=== PATIENT | male | born 1960 | race Caucasian/White ===

== ENCOUNTER 2017-04-09 10:53 | Inpatient (IN) ==
[2017-04-09] MEDS ORDERED: Naloxone 0.4 MG/ML INJ IVP PRN (15:18)
[2017-04-09] MEDS ORDERED: Ondansetron 4 MG/2 ML VIAL IVP PRN (15:18)
[2017-04-09] MEDS ORDERED: *HR* HYDROmorphone (PF) 1 MG/ML SYRINGE IVP PRN (15:24)
[2017-04-09] MEDS ORDERED: Ketorolac 15 MG/ML VIAL IVP PRN (15:25)
--- NOTE | 2017-04-09 16:01 | General Surg History&Physical ---
<Libertad Otoole - Last Filed: 04/09/17 16:02> Date of Encounter: 04/09/17 Time of Encounter: 16:00 Assessment and Plan (1) Gastric outlet obstruction Current Visit: Yes Status: Acute The assessment and plan as outlined above was discussed with the patient and/or family members who expressed understanding and agreement. All questions were answered. May have clear liquids today Nothing by mouth after midnight IV fluids- 75 mL's per hour PICC line insertion TPN therapy to start 04/10/17 Supportive care/pain control Pre-operative antibiotic- Mefoxin PPI therapy Await pathology results from biopsies H Pylori pending Repeat am labs Risks, benefits, alternatives, expected outcomes have been reviewed with the patient regarding gastrojejunostomy and he is in agreement to proceed in the next 24 hours to the operating room with Dr. Alvarez (2) Tobacco abuse Current Visit: Yes Status: Acute The assessment and plan as outlined above was discussed with the patient and/or family members who expressed understanding and agreement. All questions were answered. Smoking cessation education Incentive spirometer every 1 hour while awake DuoNebs every 6 hours routine (3) DVT prophylaxis Current Visit: Yes Status: Acute The assessment and plan as outlined above was discussed with the patient and/or family members who expressed understanding and agreement. All questions were answered. EPCDs to bilateral lower extremities for DVT prophylaxis Ambulate hallways TID with assistance History of Present Illness Chief complaint: Gastric outlet obstruction HPI: Mr. Ferrara is a 56 year old male who has been seen and evaluated by Dr. Alvarez as an outpatient for unintentional weight loss and early satiety. He had an EGD complete today with Dr. Alvarez as an outpatient which revealed erythema of the gastric antrum, irregular Z line, and severe duodenal stenosis. He was sent for an upper GI evaluation which further demonstrated severe duodenal stenosis causing gastric outlet obstruction. The patient reports having early satiety and unintentional weight loss for at least the last 6 months. He has lost 25+ pounds. He does have acid reflux and states that his symptoms have become more intense over the last few months. He reports dark red blood per rectum at times. Denies any fevers or chills. Denies any difficulty with urination. Denies any shortness of breath or chest pains. He has been admitted to the hospital for further workup and treatment. Past Med Surg Social Fam HX - Past Medical History Source: patient, old records reviewed Medical history: GERD, hyperlipidemia Psychiatric history: no psych history - Past Surgical History Surgical History: cholecystectomy, other (EGD/Colonoscopy) - Social History Smoking Status: Current every day smoker Packs per day: 1 Smokeless Tobacco Status: No Alcohol use: none Drug use: IV Drug Use, prescription drug abuse Current living situation: Home - Independent Activity Level: Independent ambulation - Family History Mother Living Status: Age at : 60 Cause of : colon cancer Hx Family Cancer: Yes (Colon) Hx Family Endocrine Disorder: Yes (DM) Grandmother Hx Family Cancer: Yes (colon (MGM)) Medications and Allergies Atorvastatin [Lipitor] 40 mg PO HS 04/10/17 [History] BuPROPion SR (12 HR) [Wellbutrin SR] 150 mg PO BID 04/10/17 [History] Lactose-Reduced Food [Ensure Liquid] 1 bottle PO TID 04/10/17 [History] Pantoprazole Sodium [Protonix] 40 mg PO DAILY 04/10/17 [History] Allergies No Known Allergies Allergy (Verified 08/23/16 18:26) Review of Systems All systems PM: reviewed and no additional remarkable complaints except as stated (in the HPI) All systems PM: A 10-system review of systems was performed and is negative for pertinent findings except as documented above in the HPI. General Surgery Exam Initial Vital Signs Temp Pulse Resp BP Pulse Ox 98.4 F 82 16 133/86 96 04/09/17 13:47 04/09/17 13:47 04/09/17 13:47 04/09/17 13:47 04/09/17 13:47 - General physical appearance well developed, well nourished, no distress - Eyes normal ocular movement - ENT normal mucosa, atraumatic, normocephalic - Neck trachea midline - Respiratory normal respiratory effort, clear to auscultation - Cardiovascular Cardiovascular exam: Present: RRR - Abdomen Abdomen general surgery: Present: bowel sounds present, soft, tender (mildly) - Integumentary Integumentary general surgery: Present: warm and dry - Neurologic Present: CN 2-12 grossly intact - Musculoskeletal Present: normal gait, normal posture - Psychiatric Psychiatric general surgery: Present: appropriate, oriented to person, oriented to place, oriented to time, speech is normal, memory intact Results - Labs All other labs normal. - Attending Attestation I examined this patient and my medical decision-making was reviewed with the TOOL AND DIE MAKER/PA/Advanced Practice Nurse/Resident Physician. I agree with the documented findings, disposition and treatment plan as described except to the extent set forth below. <Whit Alvarez - Last Filed: 04/10/17 21:43> Date of Encounter: 04/09/17 Assessment and Plan (1) History of drug abuse Current Visit: Yes Status: Chronic The assessment and plan as outlined above was discussed with the patient and/or family members who expressed understanding and agreement. All questions were answered. patient on methadone for this (2) Gastric outlet obstruction Current Visit: Yes Status: Acute The assessment and plan as outlined above was discussed with the patient and/or family members who expressed understanding and agreement. All questions were answered. (3) DVT prophylaxis Current Visit: Yes Status: Acute The assessment and plan as outlined above was discussed with the patient and/or family members who expressed understanding and agreement. All questions were answered. (4) Tobacco abuse Current Visit: Yes Status: Acute The assessment and plan as outlined above was discussed with the patient and/or family members who expressed understanding and agreement. All questions were answered. (5) Depression Current Visit: Yes Status: Acute The assessment and plan as outlined above was discussed with the patient and/or family members who expressed understanding and agreement. All questions were answered. hold home wellbutrin currently Qualifiers: Depression Type: unspecified Qualified Code(s): F32.9 - Major depressive disorder, single episode, unspecified History of Present Illness HPI: Mr. Ferrara is a 56 year old male who had previously had a CT scan of the abdomen done showing dilated small bowel and proximal duodenum with decompression after an area of narrowing. He has severe abdominal pain, epigastric area after trying to eat and will have emesis which often relieves his pain. Review of Systems All systems PM: A 10-system review of systems was performed and is negative for pertinent findings except as documented above in the HPI. General Surgery Exam Initial Vital Signs Temp Pulse Resp BP Pulse Ox 98.4 F 82 16 133/86 96 04/09/17 13:47 04/09/17 13:47 04/09/17 13:47 04/09/17 13:47 04/09/17 13:47 - General physical appearance well developed, well nourished, no distress, no pain - Eyes PERRL, normal ocular movement - ENT normal mucosa, normocephalic - Neck trachea midline - Respiratory normal expansion, clear to auscultation - Cardiovascular Cardiovascular exam: Present: RRR - Abdomen Abdomen general surgery: Present: bowel sounds present, soft, non tender - Integumentary Integumentary general surgery: Present: warm and dry, no abnormal pigmentation - Neurologic Present: CN 2-12 grossly intact - Musculoskeletal Present: normal gait, normal posture - Psychiatric Psychiatric general surgery: Present: A&Ox3, speech is normal Results - Labs 04/09/17 15:40 04/10/17 09:21 Abnormal lab results WBC 12.0 K/mcL (4.3-11.1) H 04/09/17 15:40 PT 12.5 Seconds (9.4-12.1) H 04/09/17 15:40 BUN 6 mg/dL (8-26) L 04/10/17 09:21 Phosphorus 1.8 mg/dL (2.3-4.7) L 04/10/17 09:21 Magnesium 0.9 mg/dL (1.6-2.6) L 04/10/17 09:21 Albumin 3.3 g/dL (3.5-5.0) L 04/09/17 15:40 Globulin 3.9 g/dL (2.4-3.5) H 04/09/17 15:40 Albumin/Globulin Ratio 0.8 (1.1-2.2) L 04/09/17 15:40 Diabetes panel 04/10/17 Range/Units 09:21 Sodium 141 (136-145) mEq/L Potassium 3.5 (3.5-4.5) mEq/L Chloride 108 (98-109) mEq/L Carbon Dioxide 26 (19-29) mEq/L BUN 6 L (8-26) mg/dL Creatinine 0.83 (0.72-1.25) mg/dL Glucose 96 (70-99) mg/dL Calcium 8.8 (8.6-10.8) mg/dL Triglycerides 141 (< 150) mg/dL Calcium panel 04/10/17 Range/Units 09:21 Calcium 8.8 (8.6-10.8) mg/dL Phosphorus 1.8 L (2.3-4.7) mg/dL Pituitary panel 04/10/17 Range/Units 09:21 Sodium 141 (136-145) mEq/L Potassium 3.5 (3.5-4.5) mEq/L Chloride 108 (98-109) mEq/L Carbon Dioxide 26 (19-29) mEq/L BUN 6 L (8-26) mg/dL Creatinine 0.83 (0.72-1.25) mg/dL Glucose 96 (70-99) mg/dL Calcium 8.8 (8.6-10.8) mg/dL Adrenal panel 04/10/17 Range/Units 09:21 Sodium 141 (136-145) mEq/L Potassium 3.5 (3.5-4.5) mEq/L Chloride 108 (98-109) mEq/L Carbon Dioxide 26 (19-29) mEq/L BUN 6 L (8-26) mg/dL Creatinine 0.83 (0.72-1.25) mg/dL Glucose 96 (70-99) mg/dL Calcium 8.8 (8.6-10.8) mg/dL All other labs normal. - Attending Attestation I examined this patient and my medical decision-making was reviewed with the TOOL AND DIE MAKER/PA/Advanced Practice Nurse/Resident Physician. I agree with the documented findings, disposition and treatment plan as described except to the extent set forth below.
[2017-04-09 16:05] LABS: INR 1.2; Prothrombin Time 12.5 Seconds (9.4-12.1)
[2017-04-09 16:09] LABS: Basophils # 0.1 K/mcL (0.0-0.2); Basophils % 0.4 %; Eosinophils # 0.1 K/mcL (0.0-0.6); Eosinophils % 1.1 %; Hematocrit 43.9 % (37.5-50.1); Hemoglobin 14.4 g/dL (12.9-16.9); Immature Granulocytes % 0.3 % (0-4); Lymphocytes # 2.3 K/mcL (0.6-4.6); Lymphocytes % 19.3 %; Mean Corpuscular HGB Conc 32.8 g/dL (31.6-35.5); Mean Corpuscular Hemoglobin 28.6 pg (28.0-33.3); Mean Corpuscular Volume 87.3 fL (83.0-100.0); Mean Platelet Volume 9.6 fL (9.4-12.4); Monocytes # 0.8 K/mcL (0.0-1.3); Monocytes % 6.3 %; Neutrophils # 8.7 K/mcL (1.6-8.9); Platelet Count 315 K/mcL (140-400); Red Blood Count 5.03 M/mcL (4.19-5.50); Segmented Neutrophils % 72.6 %
[2017-04-09 16:13] LABS: Alanine Aminotransferase 10 Units/L (0-55); Albumin 3.3 g/dL (3.5-5.0); Albumin/Globulin Ratio 0.8 (1.1-2.2); Alkaline Phosphatase 97 Units/L (38-126); Aspartate Amino Transferase 16 Units/L (5-34); BUN/Creatinine Ratio 9 (6-26); Bilirubin,Total 0.5 mg/dL (0.2-1.2); Blood Urea Nitrogen 8 mg/dL (8-26); Calcium 9.4 mg/dL (8.6-10.8); Carbon Dioxide 30 mEq/L (19-29); Chloride 107 mEq/L (98-109); Globulin 3.9 g/dL (2.4-3.5); Glucose 81 mg/dL (70-99); Osmolality,Calculated 295 (280-300); Potassium 3.9 mEq/L (3.5-4.5); Sodium 144 mEq/L (136-145); Total Protein 7.2 g/dL (6.0-8.3); eGFR For African Americans > 60 (> 60); eGFR For Non-African Americans > 60 (> 60)
[2017-04-09] MEDS: 0.9 % Sodium Chloride 1,000 ML IVC SCH (16:44)
[2017-04-09] MEDS ORDERED: *HR* Heparin 5,000 UNIT/ML VIAL SQ SCH (18:00)
--- NOTE | 2017-04-09 19:01 | Anesthesia Evaluation PreOp ---
Date of Encounter: 04/09/17 Time of Encounter: 18:59 - Past History Planned Operation: jejunostomy tube placement Cardiac History: Hyperlipidemia Pulmonary History: Smoker ENTRY LEVEL CIVIL ENGINEER History: Denies Any Significant HX Other Medical History: GERD Anesthesia History: No Prior Anesthetic Complications, Past Anesthesia (egd, cholecyst) Alcohol Use: none Drug use: IV Drug Use, prescription drug abuse Medications and Allergies Erythromycin OPTH Oint 1 appl LEFT EYE ONCE #1 tube 08/23/16 [Rx] Allergies No Known Allergies Allergy (Verified 08/23/16 18:26) - Meds/Allergy Pre-op Review Medications Reviewed: Yes Allergies Reviewed: Yes Beta Blockers on Current Med List: No Anesthesia Results - Labs 04/09/17 15:40 04/09/17 15:40 Anesthesia Exam Vital Signs/O2 Sat/Glucose, Most Current Temp Pulse Resp BP Pulse Ox 04/09/17 15:39 98.3 F 67 16 147/72 96 Height: 1.7 Weight: 62 NPO (# of Hours): >8 - HEENT Pupil (Motor): Pupils equal, EOMI Mallampati: II Teeth: Missing Denture Type: Upper: Complete Oral Opening: Greater than 3 - ENTRY LEVEL CIVIL ENGINEER LOC: Oriented ENTRY LEVEL CIVIL ENGINEER Motor: Normal RUE, Normal LUE, Normal RLE, Normal LLE, Normal Face ENTRY LEVEL CIVIL ENGINEER Sensory: Normal: RUE, LUE, RLE, LLE, Face - Cardiac Rhythm: Regular Murmur: None - Pulmonary Breath Sounds: bilateral Clear Respiratory Effort: Symmetrical Anesthesia Assess/Plan ASA Score: 2 Modified Julian Scale for Level of Consciousness: Cooperative, oriented, and tranquil Anesthetic Plan: General Monitoring Plan: Standard Monitors Recovery Plan: PACU
[2017-04-09] MEDS: Pantoprazole 40 MG VIAL IVP SCH (20:08)
[2017-04-09] MEDS: Ipratropium/Albuterol Neb 3 ML IH SCH (22:01)
[2017-04-10] MEDS: Ipratropium/Albuterol Neb 3 ML IH SCH ×4 (03:49→22:35)
[2017-04-10] MEDS: 0.9 % Sodium Chloride 1,000 ML IVC SCH ×2 (04:58→23:49)
[2017-04-10] MEDS: Pantoprazole 40 MG VIAL IVP SCH (08:41)
[2017-04-10] MEDS ORDERED: Pantoprazole 40 MG VIAL IVP SCH (09:00)
[2017-04-10 10:04] LABS: BUN/Creatinine Ratio 7 (6-26); Blood Urea Nitrogen 6 mg/dL (8-26); Calcium 8.8 mg/dL (8.6-10.8); Carbon Dioxide 26 mEq/L (19-29); Chloride 108 mEq/L (98-109); Glucose 96 mg/dL (70-99); Magnesium 0.9 mg/dL (1.6-2.6); Osmolality,Calculated 289 (280-300); Phosphorous 1.8 mg/dL (2.3-4.7); Potassium 3.5 mEq/L (3.5-4.5); Sodium 141 mEq/L (136-145); Triglycerides 141 mg/dL (< 150); eGFR For African Americans > 60 (> 60); eGFR For Non-African Americans > 60 (> 60)
[2017-04-10] MEDS ORDERED: Lidocaine -MPF 1% 5 ML AMPUL INFILT ONE (10:28)
[2017-04-10] MEDS ORDERED: Magnesium Sulfate 2 GM in D5% in Water 100 ML IVPB ONE (11:52)
[2017-04-10] MEDS ORDERED: Potassium Phosphate 44 MEQ in 0.9 % Sodium Chloride 250 ML IVPB ONE (11:52)
[2017-04-10] MEDS ORDERED: D10% in Water 500 ML IVC PRN (11:52)
[2017-04-10] MEDS ORDERED: cefOXitin 2,000 MG in D5% in Water (Mini-Bag+) 100 ML IVPB ONE (16:00)
[2017-04-10] MEDS ORDERED: *HR* Succinylcholine 200 MG/10 ML VIAL IVP ONE (16:59)
[2017-04-10] MEDS ORDERED: Lidocaine -MPF 4% 5 ML AMPUL ONE (16:59)
[2017-04-10] MEDS ORDERED: Lidocaine -MPF 2% 2 ML VIAL ONE (16:59)
[2017-04-10] MEDS ORDERED: Clinimix E 5%-15% SOLUTION 2,000 ML with MVI, adult with vitamin K 10 ML IVC SCH (17:00)
[2017-04-10] MEDS ORDERED: *HR* Midazolam HCl 2 MG/2 ML VIAL ONE (17:01)
[2017-04-10] MEDS ORDERED: *HR* FentaNYL (PF) 100 MCG/2 ML VIAL ONE ×2 (17:01→18:54)
[2017-04-10] MEDS ORDERED: Ketamine *HR* 500 MG/10 ML MDV ONE (17:02)
[2017-04-10] MEDS ORDERED: *HR* Propofol 200 MG/20 ML VIAL IVP ONE (17:03)
[2017-04-10] MEDS ORDERED: *HR* Labetalol 20 MG/4 ML SYRINGE IVP PRN (17:40)
[2017-04-10] MEDS ORDERED: *HR* Midazolam HCl 2 MG/2 ML VIAL IVP PRN (17:40)
[2017-04-10] MEDS ORDERED: Ondansetron 4 MG/2 ML VIAL IVP ONE (17:40)
[2017-04-10] MEDS ORDERED: Acetaminophen IV 1,000 MG/100 ML INFUS..BTL IVPB ONE (17:40)
[2017-04-10] MEDS ORDERED: CefOXitin 2,000 MG VIAL IVPB ONE (17:44)
[2017-04-10] MEDS ORDERED: *HR* Rocuronium Bromide 50 MG/5 ML VIAL ONE (19:08)
[2017-04-10] MEDS ORDERED: *HR* HYDROmorphone 2 MG/ML SYRINGE ONE (19:23)
[2017-04-10] MEDS ORDERED: Neostigmine Methylsulfate 3 MG/3 ML SYRINGE ONE (19:50)
--- NOTE | 2017-04-10 20:11 | Operative Note ---
Date of procedure: 04/10/17 Pre-op diagnosis: Gastric outlet obstruction, duodenal stricture Post-op diagnosis: same Procedure: Retrocolic retrogastric gastrojejunostomy with Henderson enteroenterostomy Complications: None immediate Anesthesia: KURT Surgeon: Whit Alvarez Production Checker: Jacqueline Hunter Estimated blood loss (cc): 30 Urine output (cc): 1,200 Specimen: none Condition: stable Disposition: PACU Procedure in Detail: Patient was brought to the operating suite and placed supine on the operating table. Sign in was performed and everyone was in agreement. Anesthesia was induced and patient was endotracheally intubated by anesthesia without incident. An NG tube was placed by anesthesia. A Cisneros catheter was placed by the circulating nurse. The abdomen was prepped and draped in the usual sterile fashion. Timeout was performed again everyone was in agreement. Midline incision above the umbilicus was made through the skin and the subcutaneous tissue with a 15 blade. We dissected through the subcutaneous tissue to the midline linea alba fascia with the Bovie. The midline was entered with the Bovie. Kocur's were placed on either side of the fascia for retraction and the incision was elongated proximally and distally with the Bovie. NG tube was palpated in the middle stomach. The colon was lifted cephalad and the middle colic vessels identified. An opening in the transverse mesocolon to the left of the middle colic vessels was made with the Bovie. This exposed the posterior aspect of the stomach. The ligament of Treitz was identified and looped the small bowel brought up through the opening in the transverse colon mesentery. An opening in the stomach and the jejunum(anti-mesenteric) Was made with the Bovie and a linear PARISH 75 stapler using a blue load was used to make the common opening between the gastrojejunostomy, ensuring the distal jejunum was on the distal stomach. 4-0 Vicryl running stitch was used to close the common gastroenterotomy opening ensuring full-thickness bites, then Lembert stitches using 3-0 silk were then placed. A Henderson jejunal enteroenterostomy was constructed first with a linear PARISH-75 stapler blue load. The common channel was then closed with a 4-0 Vicryl running stitch, ensuring full- thickness bites. This was done Lemberted with 3-0 silk interrupted stitches. The patient's small bowel was very small. Succus was manipulated across the enteroenterostomy ensuring flow. The abdomen was irrigated with sterile saline. A 7 mm KENNY drain was placed through the left abdominal wall first incising the skin with a Bovie then pulling the drain through the skin with a tonsil. The drain was secured to the skin with a 2-0 silk stitch. The drain was placed below the gastrojejunostomy anastomosis. The opening in the mesentery of the transverse colon was closed with a 3-0 Vicryl running stitch. The midline fascia was closed with 2 separate #1 non-looped PDS running stitches meeting in the middle. The subcutaneous tissue was copiously irrigated with sterile saline. 3-0 Vicryl interrupted stitches were used to approximate the subcutaneous tissue. The skin was closed with alhaji. Drain sponge, 4 x 4 gauze and Medipore tape were applied as a dressing. Patient tolerated the procedure well. He was awoken by anesthesia and the operating suite and extubated without incident. All lap and instrument counts are correct at the end of the case. The NG tube and Cisneros catheter remain with the patient.
[2017-04-10] MEDS: *HR* HYDROmorphone (PF) 1 MG/ML SYRINGE IVP PRN ×4 (20:20→20:45)
[2017-04-10] MEDS: *HR* Promethazine 25 MG/ML VIAL IVP PRN ×2 (20:30→20:40)
[2017-04-10] MEDS ORDERED: Ketorolac 30 MG/ML VIAL IVP ONE (21:02)
--- NOTE | 2017-04-10 21:35 | Operative Note ---
Date of procedure: 04/10/17 Pre-op diagnosis: gallstone pancreatitis Post-op diagnosis: same Procedure: Laparoscopic cholecystectomy Complications: none immediate Anesthesia: GETA, local Local Anesthetics: 0.5% Sensorcaine HCL SubQ (cc) (30) Surgeon: Whit Alvarez Construction Skills Teacher: Jacqueline Hunter Estimated blood loss (cc): 10 Specimen: gallbladder and contents Condition: stable Disposition: PACU Procedure in Detail: The patient was brought into the operating suite and placed supine on the operating table. Sign-in was performed and everyone was in agreement. Anesthesia was induced and patient was endotracheally intubated by anesthesia without incident and they also placed an OG tube. The abdomen was prepped and draped in the usual sterile fashion. A timeout was performed again everyone was in agreement. A supraumbilical incision was made through the skin into the subcutaneous tissue with an 11 blade. Towel clamps were placed on either side of the umbilicus for retraction. S retractors were used to dissect down to the anterior abdominal wall linea alba fascia. A Veress needle was placed through this incision and a water drop test confirmed placement and the abdomen was insufflated. The abdomen was entered with a 5 mm 0 degree laparoscope on a 5 mm X-deb trocar. The area and entry was visualized was no bleeding and no apparent bowel injury. A 5 mm subxiphoid port was placed under direct visualization after first incising the skin with an 11 blade. A right upper quadrant subcostal position midclavicular line 5 mm port was placed under direct visualization after first incising skin with 11 blade. The laparoscope was placed in this and we exchanged the supraumbilical port for a 12 mm port under direct visualization. The last 5 mm port was placed in the right upper quadrant subcostal position anterior axillary line after first incising the skin with an 11 blade. The patient was placed in steep reverse Trendelenburg left side down position. The dome of the gallbladder was grasped and retracted cephalad. Omental adhesions to the body and infundibulum of the gallbladder were taken down bluntly with the [place]. The infundibulum was grasped and retracted laterally and when this was done a hole was torn in the gallbladder spilling bile. The gallbladder was regrasped occluding the hole. Using the [place] we dissected out the cystic duct and cystic artery. 25 mm hemoclips were placed proximally on the cystic artery and one distally and it was transected with curved scissors. There was a small gallstone at the cystic duct that was milked back to the gallbladder with the [place]. A 5 mm Hemoclip was placed proximally on the cystic duct. There was some oozing from the areaof the liver edge near the clipped cystic artery but it was not the cystic artery. A large piece of Surgicel was placed in this area for hemostasis. There was a short cystic duct and concern for being able to put clips distally and partially transected and there were to be retraction. 25 mm hemoclips were placed distally. The cystic duct was transected with curved scissors. Any bleeding points were stopped with the Bovie. The gallbladder was placed in a laparoscopic Endo Catch bag and removed via the supraumbilical incision site. The inferior edge of the liver was bluntly retracted cephalad and the cystic plate and right upper quadrant was copiously irrigated with sterile saline. There was no bleeding or apparent bile leak from the cystic plate and the clips on the cystic artery and duct were intact. All irrigation was suctioned free from the abdomen. The Surgicel was removed from the abdomen. All insufflation was suctioned free from the abdomen and the ports removed. The abdominal wall at the supraumbilical incision site was closed with a 0 Vicryl [id number] stitch. 30 mL of 0.5% Marcaine was injected subcutaneously at the 4 port sites. The skin at the three 5 mm port sites were closed with 4-0 Monocryl interrupted subcuticular stitches. The skin at the supraumbilical incision site was closed with a 4-0 Monocryl running subcuticular stitch. Steri-Strips were applied to all wounds. The patient was awoken in the operating suite having tolerated the procedure well and were taken to PACU in stable condition after all lap and ensuring counts were correct at the end of the case.
--- NOTE | 2017-04-10 21:39 | Anesthesia Evaluation Post Op ---
Date of Encounter: 04/10/17 Time of Encounter: 21:38 - Vital Signs Vital Signs: Vital Signs/O2 Sat/Glucose, Most Current Temp Pulse Resp BP Pulse Ox 04/10/17 21:32 99.0 F 87 20 146/85 96 04/10/17 21:22 87 20 148/88 96 04/10/17 21:12 89 20 143/91 93 04/10/17 21:02 98.6 F 85 20 135/86 93 04/10/17 20:52 79 20 152/88 93 04/10/17 20:42 81 16 146/88 92 04/10/17 20:32 98.4 F 76 20 152/92 93 04/10/17 20:22 72 18 161/93 93 04/10/17 20:12 68 20 148/76 94 04/10/17 20:02 98.4 F 94 20 143/84 94 - Lungs Lungs: Clear Ascult./Percussion - Airway Airway: Non-obstructed - Cardiovascular Regular Rate - Mental Status Mental Status: Asleep with brisk response to light stimulation - Pain Pain Scale: 4 - Nausea Vomiting Nausea Vomiting: Not Present - Hydration Hydration: NPO - Discharge PostOp Status: Transfer Patient to floor
[2017-04-10] MEDS ORDERED: Naloxone 0.4 MG/ML INJ IVP PRN (22:08)
[2017-04-10] MEDS: Clinimix E 5%-15% SOLUTION 2,000 ML with MVI, adult with vitamin K 10 ML IVC SCH ×2 (22:31→23:30)
[2017-04-10] MEDS: *HR* HYDROmorphone 20 MG/20 ML PCA IVC PRN (23:47)
[2017-04-11] MEDS: Acetaminophen IV 1,000 MG/100 ML INFUS..BTL IVPB SCH ×4 (01:54→23:40)
[2017-04-11] MEDS: Ipratropium/Albuterol Neb 3 ML IH SCH ×4 (04:00→22:32)
[2017-04-11 06:26] LABS: Basophils % 0.1 %; Hemoglobin 14.5 g/dL (12.9-16.9); Immature Granulocytes % 0.5 % (0-4); Lymphocytes # 0.5 K/mcL (0.6-4.6); Lymphocytes % 2.6 %; Mean Corpuscular HGB Conc 32.2 g/dL (31.6-35.5); Monocytes # 0.5 K/mcL (0.0-1.3); Monocytes % 2.5 %; Neutrophils # 18.6 K/mcL (1.6-8.9); Platelet Count 344 K/mcL (140-400); Red Blood Count 5.17 M/mcL (4.19-5.50); Red Cell Distribution Width 12.8 % (11.5-14.5); Segmented Neutrophils % 94.3 %
[2017-04-11] MEDS: Pantoprazole 40 MG VIAL IVP SCH ×2 (07:30→16:24)
[2017-04-11 08:36] LABS: BUN/Creatinine Ratio 9 (6-26); Blood Urea Nitrogen 8 mg/dL (8-26); Carbon Dioxide 26 mEq/L (19-29); Chloride 103 mEq/L (98-109); Glucose 180 mg/dL (70-99); Magnesium 1.4 mg/dL (1.6-2.6); Osmolality,Calculated 291 (280-300); Phosphorous 2.3 mg/dL (2.3-4.7); Potassium 3.5 mEq/L (3.5-4.5); Sodium 139 mEq/L (136-145); eGFR For African Americans > 60 (> 60); eGFR For Non-African Americans > 60 (> 60)
--- NOTE | 2017-04-11 08:41 | General Surgery Progress Note ---
<Yuri Mckeon - Last Filed: 04/11/17 13:38> Date of Encounter: 04/11/17 Time of Encounter: 08:40 - Assessment and Plan (1) Gastric outlet obstruction Current Visit: Yes Status: Acute POD #1 s/p Gastrojejunostomy with Enteroenterostomy Afebrile. H&H stable NPO TPN with PICC NGT with LIWS (600 since yesterday) KENNY drain (5cc) No BS on exam. Will continue to monitor for bowel function Pain control - Minimal at this time d/t history of suboxone user Encouraged ICS and ambulation with assistance Routine dressing changes Continue supportive care and management (2) Leukocytosis Current Visit: Yes Status: Acute WBC 12.0>19.7. Likely post-surgical reaction. Will continue to trend. Qualifiers: Leukocytosis type: unspecified Qualified Code(s): D72.829 - Elevated white blood cell count, unspecified (3) History of drug abuse Current Visit: Yes Status: Chronic (4) Tobacco abuse Current Visit: Yes Status: Acute Subjective Patient reports: still having pain, no flatus, no bowel movement Narrative: 5cc KENNY drain and 600cc from NGT. Good urine output Objective Vital Signs - Last 8 Hours Temp Pulse Resp BP Pulse Ox 04/11/17 07:02 98.3 F 98 12 157/84 95 04/11/17 03:00 99.2 F 90 16 166/87 93 04/11/17 01:01 98.6 F 102 18 155/87 92 Intake and Output 04/10/17 04/11/17 04/11/17 23:59 07:59 15:59 Intake Total 100 / 100 988 / 988 Output Total 5 / 2045 1655 / 1655 Balance -1945 / -1945 -667 / -667 Intake: IV Fluids 100 / 100 988 / 988 0.9 % Sodium Chloride 1, 547 / 547 000 ML @ 75 mls/hr IVC . [id number] [facility] Rx#: [id number] Clinimix E 5%-15% 241 / 241 SOLUTION 2,000 ML @ 30 mls/hr IVC .Q24H [facility] with M.v.i. Adult 10 ml Rx#: [id number] Ofirmev 1,000 mg/100 ml 1 100 / 100 200 / 200 ,000 mg In 100 ml @ 400 mls/hr IVPB Q8HR [facility] Rx#: [id number] Output: Urine 150 / 150 Gastric Tube Lavage 600 / 600 Amount Right Nare 600 / 600 Estimated Blood Loss 30 / 30 Urine Amount (Catheter) 1300 / 1300 Catheter 550 / 550 1050 / 1050 Wound Drainage 5 Abdomen Other: Blood Glucose* 144 151 - General physical appearance well developed, well nourished, no distress - Eyes normal ocular movement - ENT normal mucosa (NGT present) - Neck Neck exam: trachea midline - Respiratory normal respiratory effort, clear to auscultation - Cardiovascular Cardiovascular exam: Present: RRR - Abdomen Abdomen: Present: soft, tender. Absent: bowel sounds present - Incision Incision: Present: draining (small amount of shadowing noted in midline dressing ), clean and dry, intact - Neurologic CN 2-12 grossly intact - Psychiatric oriented to time, oriented to person, oriented to place, speech is normal, memory intact - Labs 04/11/17 01:45 04/11/17 01:45 Short CBC 04/11/17 Range/Units 01:45 WBC 19.7 H D (4.3-11.1) K/mcL Hgb 14.5 (12.9-16.9) g/dL Hct 45.0 (37.5-50.1) % Plt Count 344 (140-400) K/mcL Neutrophils # 18.6 H (1.6-8.9) K/mcL BMP 04/11/17 04/10/17 Range/Units 01:45 09:21 Sodium 139 141 (136-145) mEq/L Potassium 3.5 3.5 (3.5-4.5) mEq/L Chloride 103 108 (98-109) mEq/L Carbon Dioxide 26 26 (19-29) mEq/L BUN 8 6 L (8-26) mg/dL Creatinine 0.86 0.83 (0.72-1.25) mg/dL Glucose 180 H 96 (70-99) mg/dL Calcium 9.0 8.8 (8.6-10.8) mg/dL Vital Signs Temp Pulse Resp BP Pulse Ox 04/11/17 07:02 98.3 F 98 12 157/84 95 04/11/17 03:00 99.2 F 90 16 166/87 93 07/13/17 01:01 98.6 F 102 18 155/87 92 04/11/17 00:06 97.6 F 83 20 173/83 93 04/10/17 22:57 98.1 F 95 20 165/88 93 04/10/17 22:21 98.1 F 89 20 152/78 95 04/10/17 21:42 85 20 159/88 94 04/10/17 21:32 99.0 F 87 20 146/85 96 04/10/17 21:22 87 20 148/88 96 04/10/17 21:12 89 20 143/91 93 04/10/17 21:02 98.6 F 85 20 135/86 93 04/10/17 20:52 79 20 152/88 93 04/10/17 20:42 81 16 146/88 92 04/10/17 20:32 98.4 F 76 20 152/92 93 04/10/17 20:22 72 18 161/93 93 04/10/17 20:12 68 20 148/76 94 04/10/17 20:02 98.4 F 94 20 143/84 94 04/10/17 16:58 98.0 F 77 12 142/69 94 04/10/17 11:10 97.9 F 62 150/82 94 Intake and Output 04/10/17 04/11/17 04/11/17 23:59 07:59 15:59 Intake Total 100 / 100 988 / 988 Output Total 2044 / 2044 1655 / 1655 Balance -1945 / -1945 -667 / -667 Intake: IV Fluids 100 / 100 988 / 988 0.9 % Sodium Chloride 1, 547 / 547 000 ML @ 75 mls/hr IVC . [id number] [facility] Rx#: [id number] Clinimix E 5%-15% 241 / 241 SOLUTION 2,000 ML @ 30 mls/hr IVC .Q24H [facility] with M.v.i. Adult 10 ml Rx#: [id number] Ofirmev 1,000 mg/100 ml 1 100 / 100 200 / 200 ,000 mg In 100 ml @ 400 mls/hr IVPB Q8HR [facility] Rx#: [id number] Output: Urine 150 / 150 Gastric Tube Lavage 600 / 600 Amount Right Nare 600 / 600 Estimated Blood Loss 30 / 30 Urine Amount (Catheter) 1300 / 1300 Catheter 550 / 550 1050 / 1050 Wound Drainage 5 Abdomen Other: Blood Glucose* 144 151 - VTE Documentation of Mechanical Device: Intermittent pneumatic compression device Consult Discharge Plan - Plan Referrals: Marla Mendoza DO [Primary Care Provider] - <Whit Alvarez - Last Filed: 04/12/17 09:09> Date of Encounter: 04/11/17 Time of Encounter: 17:00 - Assessment and Plan (1) History of drug abuse Current Visit: Yes Status: Chronic holding methadone currently as pt unable to take anything po (2) Gastric outlet obstruction Current Visit: Yes Status: Acute continue npo, ngt decompression no ice chips TPN for malnutrition will plan UGI ~3 days after surgery to ensure no leaks before remove ngt and start clears, must have return of bowel function as well wbc elevated - not unexpected post op elevation OOB to chair (3) DVT prophylaxis Current Visit: Yes Status: Acute (4) Tobacco abuse Current Visit: Yes Status: Acute nicotine patch low dose if needed (5) Depression Current Visit: Yes Status: Acute Qualifiers: Depression Type: unspecified Qualified Code(s): F32.9 - Major depressive disorder, single episode, unspecified (6) Anxiety Current Visit: Yes Status: Acute started ativan iv (7) Leukocytosis Current Visit: Yes Status: Acute Qualifiers: Leukocytosis type: unspecified Qualified Code(s): D72.829 - Elevated white blood cell count, unspecified (8) Severe protein-calorie malnutrition Current Visit: Yes Status: Chronic npo currently, no ice or meds PICC and TPN (9) Hypomagnesemia Current Visit: Yes Status: Acute replaced, monitor Subjective Patient reports: still having pain, no flatus, no bowel movement, afebrile Narrative: complains of minimal pain, is sedate as just received ativan for anxiety is thirsty he and his are concerned regarding him not receiving his methadone Objective Vital Signs - Last 8 Hours Temp Pulse Resp BP Pulse Ox 04/12/17 07:37 98.2 F 74 21 150/76 92 04/12/17 05:15 90 150/79 04/12/17 03:20 98.7 F 86 14 151/80 93 Intake and Output 04/11/17 04/12/17 04/12/17 23:59 07:59 15:59 Intake Total 450 / 450 2818 / 2818 Output Total 1250 / 1250 1710 / 1710 Balance -800 / -800 1108 / 1108 Intake: IV Fluids 449 / 449 2818 / 2818 0.9 % Sodium Chloride 1, 300 / 300 1500 / 1500 000 ML @ 75 mls/hr IVC . [id number] [facility] Rx#: [id number] Clinimix E 5%-15% 149 / 149 868 / 868 SOLUTION 2,000 ML @ 60 mls/hr IVC .Q24H [facility] with M.v.i. Adult 10 ml Rx#: [id number] Ofirmev 1,000 mg/100 ml 1 200 / 200 ,000 mg In 100 ml @ 400 mls/hr IVPB Q8HR [facility] Rx#: [id number] Intralipid 20% 250 ML @ 250 / 250 21 mls/hr IVPB DAILY@1700 [facility] Rx#:[id number] Oral 1 / 1 0 / 0 Output: Urine 0 / 0 0 / 0 Catheter 800 / 800 750 / 750 Gastric Drainage 450 / 450 950 / 950 Wound Drainage 10 / 10 Abdomen 10 / 10 Other: Meal npo NPO Percent of Meal Consumed 0% 0% Weight 58.1 kg Blood Glucose* 137 143 Patient Weight 04/12/17 23:59 Weight 58.1 kg - General physical appearance well developed, well nourished, no distress - Eyes normal ocular movement - ENT normal mucosa, dry mucosa - Neck Neck exam: trachea midline - Respiratory normal expansion, normal respiratory effort, clear to auscultation - Cardiovascular Cardiovascular exam: Present: RRR, no murmurs/rubs/gallops - Abdomen Abdomen: Present: soft, tender (appropriate post op tenderness). Absent: bowel sounds present - Incision Incision: Present: clean and dry, intact. Absent: draining - Genitourinary other (hernandez in place) - Integumentary no rash, no growths - Neurologic CN 2-12 grossly intact - Musculoskeletal normal posture - Psychiatric oriented to time, oriented to person, memory intact - Labs 04/12/17 03:55 04/12/17 03:55 Diabetes panel 04/12/17 Range/Units 03:55 Sodium 143 (136-145) mEq/L Potassium 2.9 L (3.5-4.5) mEq/L Chloride 108 (98-109) mEq/L Carbon Dioxide 31 H (19-29) mEq/L BUN 12 (8-26) mg/dL Creatinine 0.72 (0.72-1.25) mg/dL Glucose 113 H (70-99) mg/dL Calcium 7.8 L (8.6-10.8) mg/dL Calcium panel 04/12/17 Range/Units 03:55 Calcium 7.8 L (8.6-10.8) mg/dL Phosphorus 1.7 L (2.3-4.7) mg/dL Pituitary panel 04/12/17 Range/Units 03:55 Sodium 143 (136-145) mEq/L Potassium 2.9 L (3.5-4.5) mEq/L Chloride 108 (98-109) mEq/L Carbon Dioxide 31 H (19-29) mEq/L BUN 12 (8-26) mg/dL Creatinine 0.72 (0.72-1.25) mg/dL Glucose 113 H (70-99) mg/dL Calcium 7.8 L (8.6-10.8) mg/dL Adrenal panel 04/12/17 Range/Units 03:55 Sodium 143 (136-145) mEq/L Potassium 2.9 L (3.5-4.5) mEq/L Chloride 108 (98-109) mEq/L Carbon Dioxide 31 H (19-29) mEq/L BUN 12 (8-26) mg/dL Creatinine 0.72 (0.72-1.25) mg/dL Glucose 113 H (70-99) mg/dL Calcium 7.8 L (8.6-10.8) mg/dL
[2017-04-11] MEDS: 0.9 % Sodium Chloride 1,000 ML IVC SCH (11:28)
[2017-04-11] MEDS: *HR* Metoprolol 5 MG/5 ML VIAL IVP SCH ×3 (11:29→23:40)
[2017-04-11] MEDS: *HR* HYDROmorphone 20 MG/20 ML PCA IVC PRN (12:38)
[2017-04-11] MEDS ORDERED: Magnesium Sulfate 2 GM in D5% in Water 100 ML IVPB ONE (13:20)
[2017-04-11] MEDS: *HR* LORazepam 2 MG/ML VIAL IVP PRN ×2 (13:45→21:43)
[2017-04-11] MEDS ORDERED: *HR* Propofol 200 MG/20 ML VIAL IVP ONE (14:40)
[2017-04-11] MEDS ORDERED: Clinimix E 5%-15% SOLUTION 2,000 ML with MVI, adult with vitamin K 10 ML IVC SCH (17:00)
[2017-04-12] MEDS: 0.9 % Sodium Chloride 1,000 ML IVC SCH ×2 (01:20→09:19)
[2017-04-12] MEDS: Ipratropium/Albuterol Neb 3 ML IH SCH ×4 (04:17→21:46)
[2017-04-12 04:40] LABS: Basophils % 0.1 %; Eosinophils % 0.2 %; Hematocrit 37.9 % (37.5-50.1); Immature Granulocytes % 0.3 % (0-4); Lymphocytes # 1.9 K/mcL (0.6-4.6); Lymphocytes % 12.3 %; Mean Corpuscular HGB Conc 32.5 g/dL (31.6-35.5); Mean Corpuscular Hemoglobin 28.2 pg (28.0-33.3); Mean Corpuscular Volume 86.9 fL (83.0-100.0); Mean Platelet Volume 9.9 fL (9.4-12.4); Monocytes # 1.1 K/mcL (0.0-1.3); Monocytes % 7.5 %; Neutrophils # 12.1 K/mcL (1.6-8.9); Platelet Count 254 K/mcL (140-400); Red Blood Count 4.36 M/mcL (4.19-5.50); Red Cell Distribution Width 12.8 % (11.5-14.5); Segmented Neutrophils % 79.6 %
[2017-04-12 04:46] LABS: Hemoglobin 12.3 g/dL (12.9-16.9)
[2017-04-12 04:51] LABS: BUN/Creatinine Ratio 17 (6-26); Blood Urea Nitrogen 12 mg/dL (8-26); Calcium 7.8 mg/dL (8.6-10.8); Carbon Dioxide 31 mEq/L (19-29); Chloride 108 mEq/L (98-109); Glucose 113 mg/dL (70-99); Magnesium 1.8 mg/dL (1.6-2.6); Osmolality,Calculated 297 (280-300); Phosphorous 1.7 mg/dL (2.3-4.7); Potassium 2.9 mEq/L (3.5-4.5); Sodium 143 mEq/L (136-145); eGFR For African Americans > 60 (> 60); eGFR For Non-African Americans > 60 (> 60)
[2017-04-12] MEDS: *HR* Metoprolol 5 MG/5 ML VIAL IVP SCH ×3 (05:18→17:35)
[2017-04-12] MEDS: Acetaminophen IV 1,000 MG/100 ML INFUS..BTL IVPB SCH ×2 (07:36→15:41)
[2017-04-12] MEDS: Pantoprazole 40 MG VIAL IVP SCH ×2 (07:36→16:59)
[2017-04-12] MEDS ORDERED: Potassium Phosphate 44 MEQ in 0.9 % Sodium Chloride 250 ML IVPB ONE (09:02)
--- NOTE | 2017-04-12 09:30 | General Surgery Progress Note ---
<Yuri Mckeon - Last Filed: 04/12/17 10:53> Date of Encounter: 04/12/17 Time of Encounter: 09:28 - Assessment and Plan (1) Gastric outlet obstruction Current Visit: Yes Status: Acute POD #2 s/p Gastrojejunostomy with Enteroenterostomy - Upper GI Endoscopy on Saturday VSS, H&H stable NPO except ice chips. TPN with PICC NGT with LIWS (700 since yesterday) KENNY drain (10 cc) Bowel sounds present on exam today. Will continue to monitor for bowel function Pain control: Well controlled at this time - IV Tylenol - Dilaudid [employer]IST Encouraged ICS and ambulation with assistance Routine dressing changes Continue supportive care and management (2) Leukocytosis Current Visit: Yes Status: Acute WBC 12.0>19.7>15.3. Improving. Repeat am labs Qualifiers: Leukocytosis type: unspecified Qualified Code(s): D72.829 - Elevated white blood cell count, unspecified (3) Hypokalemia Current Visit: Yes Status: Acute Potassium of 2.9 today. Replacing. Repeat am labs. (4) History of drug abuse Current Visit: Yes Status: Chronic (5) Tobacco abuse Current Visit: Yes Status: Acute Subjective Patient reports: feels better, pain is less, no flatus, no bowel movement, afebrile Objective Vital Signs - Last 8 Hours Temp Pulse Resp BP Pulse Ox 04/12/17 07:37 98.2 F 74 21 150/76 92 04/12/17 05:15 90 150/79 04/12/17 03:20 98.7 F 86 14 151/80 93 Intake and Output 04/11/17 04/12/17 04/12/17 23:59 07:59 15:59 Intake Total 450 / 450 2818 / 2818 127 / 127 Output Total 1250 / 1250 1710 / 1710 Balance -800 / -800 1108 / 1108 127 / 127 Intake: IV Fluids 449 / 449 2818 / 2818 127 / 127 0.9 % Sodium Chloride 1, 300 / 300 1500 / 1500 127 / 127 000 ML @ 75 mls/hr IVC . [id number] [facility] Rx#: [id number] Clinimix E 5%-15% 149 / 149 868 / 868 SOLUTION 2,000 ML @ 60 mls/hr IVC .Q24H [facility] with M.v.i. Adult 10 ml Rx#: [id number] Ofirmev 1,000 mg/100 ml 1 200 / 200 ,000 mg In 100 ml @ 400 mls/hr IVPB Q8HR [facility] Rx#: [id number] Intralipid 20% 250 ML @ 250 / 250 21 mls/hr IVPB DAILY@1700 [facility] Rx#:[id number] Oral 1 / 1 0 / 0 Output: Urine 0 / 0 0 / 0 Catheter 800 / 800 750 / 750 Gastric Drainage 450 / 450 950 / 950 Wound Drainage 10 Abdomen Other: Meal npo NPO Percent of Meal Consumed 0% 0% Weight 58.1 kg Blood Glucose* 137 143 Patient Weight 04/12/17 23:59 Weight 58.1 kg - General physical appearance well developed, no distress - Eyes normal ocular movement - ENT normal mucosa - Neck Neck exam: trachea midline - Respiratory normal expansion, normal respiratory effort, clear to auscultation - Cardiovascular Cardiovascular exam: Present: RRR, murmurs (GIORGI) - Abdomen Abdomen: Present: bowel sounds present, soft, tender (incisional), wound ( Midline incision clean dry and intact. Jennifer present without dehiscence. No erythema or drainage. KENNY drain intact in LLQ.) - Neurologic CN 2-12 grossly intact - Psychiatric oriented to time, oriented to person, oriented to place, speech is normal, memory intact - Labs 04/12/17 03:55 04/12/17 03:55 Short CBC 04/12/17 Range/Units 03:55 WBC 15.3 H (4.3-11.1) K/mcL Hgb 12.3 L D (12.9-16.9) g/dL Hct 37.9 (37.5-50.1) % Plt Count 254 (140-400) K/mcL Neutrophils # 12.1 H (1.6-8.9) K/mcL BMP 04/12/17 Range/Units 03:55 Sodium 143 (136-145) mEq/L Potassium 2.9 L (3.5-4.5) mEq/L Chloride 108 (98-109) mEq/L Carbon Dioxide 31 H (19-29) mEq/L BUN 12 (8-26) mg/dL Creatinine 0.72 (0.72-1.25) mg/dL Glucose 113 H (70-99) mg/dL Calcium 7.8 L (8.6-10.8) mg/dL Vital Signs Temp Pulse Resp BP Pulse Ox 04/12/17 07:37 98.2 F 74 21 150/76 92 04/12/17 05:15 90 150/79 04/12/17 03:20 98.7 F 86 14 151/80 93 04/11/17 23:28 98.0 F 89 16 157/84 93 04/11/17 19:42 15 94 04/11/17 19:22 98.3 F 75 14 158/85 95 04/11/17 15:45 98.8 F 100 12 153/83 93 04/11/17 12:30 98.3 F 83 14 144/76 92 Intake and Output 04/11/17 04/12/17 04/12/17 23:59 07:59 15:59 Intake Total 450 / 450 2818 / 2818 127 / 127 Output Total 1250 / 1250 1710 / 1710 Balance -800 / -800 1108 / 1108 127 / 127 Intake: IV Fluids 449 / 449 2818 / 2818 127 / 127 0.9 % Sodium Chloride 1, 300 / 300 1500 / 1500 127 / 127 000 ML @ 75 mls/hr IVC . [id number] [facility] Rx#: [id number] Clinimix E 5%-15% 149 / 149 868 / 868 SOLUTION 2,000 ML @ 60 mls/hr IVC .Q24H [facility] with M.v.i. Adult 10 ml Rx#: [id number] Ofirmev 1,000 mg/100 ml 1 200 / 200 ,000 mg In 100 ml @ 400 mls/hr IVPB Q8HR [facility] Rx#: [id number] Intralipid 20% 250 ML @ 250 / 250 21 mls/hr IVPB DAILY@1700 [facility] Rx#:[id number] Oral 1 / 1 0 / 0 Output: Urine 0 / 0 0 / 0 Catheter 800 / 800 750 / 750 Gastric Drainage 450 / 450 950 / 950 Wound Drainage 10 / 10 Abdomen 10 / 10 Other: Meal npo NPO Percent of Meal Consumed 0% 0% Weight 58.1 kg Blood Glucose* 137 143 Patient Weight 04/12/17 23:59 Weight 58.1 kg - VTE Documentation of Mechanical Device: Intermittent pneumatic compression device Consult Discharge Plan - Plan Referrals: Marla Mendoza DO [Primary Care Provider] - <Whit Alvarez - Last Filed: 04/12/17 13:07> Date of Encounter: 04/12/17 - Assessment and Plan (1) History of drug abuse Current Visit: Yes Status: Chronic holding home methadone currently (2) Gastric outlet obstruction Current Visit: Yes Status: Acute continue ngt decompression continue TPN wbc is decreasing, trend, Not on abx await return of bowel fucntion plan UGI Saturday to ensure no leaks before start feeds aggressive pulmonary toilet OOB to chair and ambulate bid (3) DVT prophylaxis Current Visit: Yes Status: Acute epcds start heparin sq saturday am (4) Tobacco abuse Current Visit: Yes Status: Acute ok low dose nicotine patch if patient needs (5) Depression Current Visit: Yes Status: Acute Qualifiers: Depression Type: unspecified Qualified Code(s): F32.9 - Major depressive disorder, single episode, unspecified (6) Anxiety Current Visit: Yes Status: Acute prn ativan (7) Leukocytosis Current Visit: Yes Status: Acute Qualifiers: Leukocytosis type: unspecified Qualified Code(s): D72.829 - Elevated white blood cell count, unspecified (8) Severe protein-calorie malnutrition Current Visit: Yes Status: Chronic continue TPN until able to take in adequate po intake (9) Hypokalemia Current Visit: Yes Status: Acute (10) Hypophosphatasia Current Visit: Yes Status: Acute replaced, monitor Subjective Patient reports: no new complaints, feels better, still having pain, pain is less, no flatus, no bowel movement Objective Vital Signs - Last 8 Hours Temp Pulse Resp BP Pulse Ox 04/12/17 10:17 98.4 F 95 19 134/80 93 04/12/17 07:37 98.2 F 74 21 150/76 92 04/12/17 05:15 90 150/79 Intake and Output 04/11/17 04/12/17 04/12/17 23:59 07:59 15:59 Intake Total 450 / 450 2818 / 2818 390 / 390 Output Total 1250 / 1250 1710 / 1710 550 / 550 Balance -800 / -800 1108 / 1108 -160 / -160 Intake: IV Fluids 449 / 449 2818 / 2818 390 / 390 0.9 % Sodium Chloride 1, 300 / 300 1500 / 1500 127 / 127 000 ML @ 75 mls/hr IVC . [id number] [facility] Rx#: [id number] Clinimix E 5%-15% 149 / 149 868 / 868 263 / 263 SOLUTION 2,000 ML @ 60 mls/hr IVC .Q24H [facility] with M.v.i. Adult 10 ml Rx#: [id number] Ofirmev 1,000 mg/100 ml 1 200 / 200 ,000 mg In 100 ml @ 400 mls/hr IVPB Q8HR [facility] Rx#: [id number] Intralipid 20% 250 ML @ 250 / 250 21 mls/hr IVPB DAILY@1700 [facility] Rx#:[id number] Oral 1 / 1 0 / 0 Output: Urine 0 / 0 0 / 0 Catheter 800 / 800 750 / 750 225 / 225 Gastric Drainage 450 / 450 950 / 950 325 / 325 Wound Drainage 10 / 10 0 / 0 Abdomen 10 / 10 0 / 0 Other: Meal npo NPO Percent of Meal Consumed 0% 0% Weight 58.1 kg 58.1 kg Blood Glucose* 137 143 144 Patient Weight 04/12/17 23:59 Weight 58.1 kg - General physical appearance well developed, no distress, cachectic - Eyes PERRL, normal ocular movement - ENT normal mucosa, normocephalic - Neck Neck exam: trachea midline - Respiratory normal expansion, clear to auscultation - Cardiovascular Cardiovascular exam: Present: RRR - Abdomen Abdomen: Present: bowel sounds present, soft, tender, wound Additional Comments: KENNY serosang - Genitourinary other (hernandez in place) - Integumentary no growths - Neurologic CN 2-12 grossly intact - Musculoskeletal normal posture - Psychiatric oriented to time, oriented to person, memory intact - Labs 04/12/17 03:55 04/12/17 03:55 Short CBC 04/12/17 Range/Units 03:55 WBC 15.3 H (4.3-11.1) K/mcL Hgb 12.3 L D (12.9-16.9) g/dL Hct 37.9 (37.5-50.1) % Plt Count 254 (140-400) K/mcL Neutrophils # 12.1 H (1.6-8.9) K/mcL BMP 04/12/17 Range/Units 03:55 Sodium 143 (136-145) mEq/L Potassium 2.9 L (3.5-4.5) mEq/L Chloride 108 (98-109) mEq/L Carbon Dioxide 31 H (19-29) mEq/L BUN 12 (8-26) mg/dL Creatinine 0.72 (0.72-1.25) mg/dL Glucose 113 H (70-99) mg/dL Calcium 7.8 L (8.6-10.8) mg/dL Vital Signs Temp Pulse Resp BP Pulse Ox 04/12/17 10:17 98.4 F 95 19 134/80 93 04/12/17 07:37 98.2 F 74 21 150/76 92 04/12/17 05:15 90 150/79 04/12/17 03:20 98.7 F 86 14 151/80 93 04/11/17 23:28 98.0 F 89 16 157/84 93 04/11/17 19:42 15 94 04/11/17 19:22 98.3 F 75 14 158/85 95 04/11/17 15:45 98.8 F 100 12 153/83 93 Intake and Output 04/11/17 04/12/17 04/12/17 23:59 07:59 15:59 Intake Total 450 / 450 2818 / 2818 390 / 390 Output Total 1250 / 1250 1710 / 1710 550 / 550 Balance -800 / -800 1108 / 1108 -160 / -160 Intake: IV Fluids 449 / 449 2818 / 2818 390 / 390 0.9 % Sodium Chloride 1, 300 / 300 1500 / 1500 127 / 127 000 ML @ 75 mls/hr IVC . [id number] [facility] Rx#: [id number] Clinimix E 5%-15% 149 / 149 868 / 868 263 / 263 SOLUTION 2,000 ML @ 60 mls/hr IVC .Q24H [facility] with M.v.i. Adult 10 ml Rx#: [id number] Ofirmev 1,000 mg/100 ml 1 200 / 200 ,000 mg In 100 ml @ 400 mls/hr IVPB Q8HR [facility] Rx#: [id number] Intralipid 20% 250 ML @ 250 / 250 21 mls/hr IVPB DAILY@1700 [facility] Rx#:[id number] Oral 1 / 1 0 / 0 Output: Urine 0 / 0 0 / 0 Catheter 800 / 800 750 / 750 225 / 225 Gastric Drainage 450 / 450 950 / 950 325 / 325 Wound Drainage 10 0 / 0 Abdomen 0 / 0 Other: Meal npo NPO Percent of Meal Consumed 0% 0% Weight 58.1 kg 58.1 kg Blood Glucose* 137 143 144 Patient Weight 04/12/17 23:59 Weight 58.1 kg - Attending Attestation I examined this patient and my medical decision-making was reviewed with the OPHTHALMIC ASST/PA/Advanced Practice Nurse/Resident Physician. I agree with the documented findings, disposition and treatment plan as described except to the extent set forth below.
[2017-04-12] MEDS ORDERED: D10% in Water 500 ML IVC PRN (10:55)
[2017-04-12] MEDS: *HR* HYDROmorphone 20 MG/20 ML PCA IVC PRN (13:09)
[2017-04-12] MEDS: *HR* LORazepam 2 MG/ML VIAL IVP PRN ×2 (15:41→22:48)
[2017-04-12] MEDS ORDERED: Clinimix E 5%-15% SOLUTION 2,000 ML with MVI, adult with vitamin K 10 ML IVC SCH (17:00)
[2017-04-12] MEDS: Ondansetron 4 MG/2 ML VIAL IVP PRN (20:39)
[2017-04-13] MEDS: Acetaminophen IV 1,000 MG/100 ML INFUS..BTL IVPB SCH ×3 (00:17→16:35)
[2017-04-13] MEDS: *HR* Metoprolol 5 MG/5 ML VIAL IVP SCH ×4 (00:18→17:40)
[2017-04-13] MEDS: Ipratropium/Albuterol Neb 3 ML IH SCH ×5 (03:44→22:23)
[2017-04-13 04:00] LABS: Basophils # 0.1 K/mcL (0.0-0.2); Basophils % 0.2 %; Eosinophils % 0.1 %; Hematocrit 43.9 % (37.5-50.1); Hemoglobin 14.5 g/dL (12.9-16.9); Immature Granulocytes % 0.5 % (0-4); Lymphocytes % 8.3 %; Mean Corpuscular Hemoglobin 28.3 pg (28.0-33.3); Mean Corpuscular Volume 85.6 fL (83.0-100.0); Mean Platelet Volume 9.4 fL (9.4-12.4); Monocytes # 1.5 K/mcL (0.0-1.3); Monocytes % 6.3 %; Neutrophils # 20.6 K/mcL (1.6-8.9); Platelet Count 240 K/mcL (140-400); Red Blood Count 5.13 M/mcL (4.19-5.50); Red Cell Distribution Width 12.7 % (11.5-14.5); Segmented Neutrophils % 84.6 %
[2017-04-13 04:12] LABS: BUN/Creatinine Ratio 23 (6-26); Blood Urea Nitrogen 17 mg/dL (8-26); Calcium 9.5 mg/dL (8.6-10.8); Carbon Dioxide 28 mEq/L (19-29); Chloride 103 mEq/L (98-109); Glucose 118 mg/dL (70-99); Osmolality,Calculated 293 (280-300); Sodium 140 mEq/L (136-145); eGFR For African Americans > 60 (> 60); eGFR For Non-African Americans > 60 (> 60)
[2017-04-13 04:13] LABS: Phosphorous 3.5 mg/dL (2.3-4.7)
[2017-04-13 04:14] LABS: Potassium 4.2 mEq/L (3.5-4.5)
[2017-04-13] MEDS: *HR* Heparin 5,000 UNIT/ML VIAL SQ SCH ×2 (05:38→17:39)
[2017-04-13] MEDS: Ondansetron 4 MG/2 ML VIAL IVP PRN (07:37)
[2017-04-13] MEDS: Pantoprazole 40 MG VIAL IVP SCH ×2 (07:37→16:35)
--- NOTE | 2017-04-13 09:19 | General Surgery Progress Note ---
Date of Encounter: 04/13/17 Time of Encounter: 09:16 - Assessment and Plan (1) Gastric outlet obstruction Current Visit: Yes Status: Acute POD #3 s/p Gastrojejunostomy with Enteroenterostomy Upper GI Endoscopy tomorrow morning. - Will evaluate for resolution of obstruction and advancement of diet VSS, H&H stable NPO except ice chips. - No ice chips after midnight tonight TPN with PICC NGT with LIWS (475 since yesterday) KENNY drain (<5 cc) Faint bowel sounds present on exam today. Will continue to monitor for bowel function Pain control: Well controlled at this time - IV Tylenol - Dilaudid HANDLE MAKER Encouraged ICS and ambulation with assistance. Ok for nursing to clamp NGT for ambulation. Continue supportive care and management (2) Leukocytosis Current Visit: Yes Status: Acute WBC 12.0>19.7>15.3> 24.4. Trend tomorrow Afebrile Lungs clear, no dysuria, wound c/d/i, no erythema or drainage. Qualifiers: Leukocytosis type: unspecified Qualified Code(s): D72.829 - Elevated white blood cell count, unspecified (3) Hypokalemia Current Visit: Yes Status: Acute Potassium of 2.9 >4.2 today. Replaced. Will repeat am labs. (4) History of drug abuse Current Visit: Yes Status: Chronic Holding home methadone (5) Tobacco abuse Current Visit: Yes Status: Acute Nicotine patch PRN Subjective Patient reports: no new complaints, pain is less, no flatus, no bowel movement, afebrile Narrative: Patient is lying comfortably in bed this morning. No concerns overnight. 475 NGT output and <5cc of KENNY drain. Objective Vital Signs - Last 8 Hours Temp Pulse Resp BP Pulse Ox 04/13/17 07:12 97.6 F 98 17 137/86 90 04/13/17 03:55 100.0 F H 78 17 159/88 95 Intake and Output 04/12/17 04/13/17 04/13/17 23:59 07:59 15:59 Intake Total 398 / 398 600 / 600 Output Total 325 / 325 800 / 800 Balance 73 / 73 -200 / -200 Intake: IV Fluids 398 / 398 600 / 600 0.9 % Sodium Chloride 1, 100 / 100 000 ML @ 40 mls/hr IVC . Q24H [facility] Rx#:[id number] Clinimix E 5%-15% 298 / 298 SOLUTION 2,000 ML @ 60 mls/hr IVC .Q24H [facility] with M.v.i. Adult 10 ml Rx#: [id number] Ofirmev 1,000 mg/100 ml 1 100 / 100 ,000 mg In 100 ml @ 400 mls/hr IVPB Q8HR [facility] Rx#: [id number] Intralipid 20% 250 ML @ 500 / 500 21 mls/hr IVPB MoWeFr@ 1700 [facility] Rx#:[id number] Oral 0 / 0 0 / 0 Output: Urine 325 / 325 475 / 475 Gastric Drainage 325 / 325 Wound Drainage 0 / 0 0 / 0 Abdomen 0 / 0 0 / 0 Other: Meal NPO Percent of Meal Consumed 0% Weight 58.1 kg Blood Glucose* 122 133 Patient Weight 04/13/17 23:59 Weight 58.1 kg - General physical appearance well developed, well nourished, no distress - Eyes normal ocular movement - ENT normal mucosa - Neck Neck exam: trachea midline - Respiratory normal expansion, normal respiratory effort, clear to auscultation - Cardiovascular Cardiovascular exam: Present: RRR - Abdomen Abdomen: Present: bowel sounds present (faint), soft, tender (incisional), wound (midline incison c/d/i. alhaji present. KENNY drain intact in LLQ.) - Integumentary other (warm and dry) - Neurologic CN 2-12 grossly intact - Psychiatric oriented to time, oriented to person, oriented to place, speech is normal, memory intact - Labs 04/13/17 03:44 04/13/17 03:44 Short CBC 04/13/17 Range/Units 03:44 WBC 24.4 H D (4.3-11.1) K/mcL Hgb 14.5 D (12.9-16.9) g/dL Hct 43.9 (37.5-50.1) % Plt Count 240 (140-400) K/mcL Neutrophils # 20.6 H (1.6-8.9) K/mcL BMP 04/13/17 Range/Units 03:44 Sodium 140 (136-145) mEq/L Potassium 4.2 D (3.5-4.5) mEq/L Chloride 103 (98-109) mEq/L Carbon Dioxide 28 (19-29) mEq/L BUN 17 (8-26) mg/dL Creatinine 0.74 (0.72-1.25) mg/dL Glucose 118 H (70-99) mg/dL Calcium 9.5 D (8.6-10.8) mg/dL Vital Signs Temp Pulse Resp BP Pulse Ox 04/13/17 07:12 97.6 F 98 17 137/86 90 04/13/17 03:55 100.0 F H 78 17 159/88 95 04/13/17 00:15 99.1 F 98 18 159/96 93 04/12/17 19:20 98.6 F 91 18 152/76 93 04/12/17 14:00 83 20 138/80 95 04/12/17 10:17 98.4 F 95 19 134/80 93 Intake and Output 04/12/17 04/13/17 04/13/17 23:59 07:59 15:59 Intake Total 398 / 398 600 / 600 Output Total 325 / 325 800 / 800 Balance 73 / 73 -200 / -200 Intake: IV Fluids 398 / 398 600 / 600 0.9 % Sodium Chloride 1, 100 / 100 000 ML @ 40 mls/hr IVC . Q24H [facility] Rx#:[id number] Clinimix E 5%-15% 298 / 298 SOLUTION 2,000 ML @ 60 mls/hr IVC .Q24H [facility] with M.v.i. Adult 10 ml Rx#: [id number] Ofirmev 1,000 mg/100 ml 1 100 / 100 ,000 mg In 100 ml @ 400 mls/hr IVPB Q8HR [facility] Rx#: [id number] Intralipid 20% 250 ML @ 500 / 500 21 mls/hr IVPB MoWeFr@ 1700 [facility] Rx#:[id number] Oral 0 / 0 0 / 0 Output: Urine 325 / 325 475 / 475 Gastric Drainage 325 / 325 Wound Drainage 0 / 0 0 / 0 Abdomen 0 / 0 0 / 0 Other: Meal NPO Percent of Meal Consumed 0% Weight 58.1 kg Blood Glucose* 122 133 Patient Weight 04/13/17 23:59 Weight 58.1 kg - VTE Documentation of Mechanical Device: Intermittent pneumatic compression device Consult Discharge Plan - Plan Referrals: Marla Mendoza DO [Primary Care Provider] -
[2017-04-13] MEDS: *HR* LORazepam 2 MG/ML VIAL IVP PRN ×2 (10:29→22:17)
[2017-04-13] MEDS: 0.9 % Sodium Chloride 1,000 ML IVC SCH (10:29)
[2017-04-13] MEDS: Clinimix E 5%-15% SOLUTION 2,000 ML with MVI, adult with vitamin K 10 ML IVC SCH ×2 (16:36→20:09)
[2017-04-13] MEDS: *HR* HYDROmorphone 20 MG/20 ML PCA IVC PRN (16:57)
[2017-04-14] MEDS: *HR* Metoprolol 5 MG/5 ML VIAL IVP SCH ×4 (00:26→17:09)
[2017-04-14] MEDS: Acetaminophen IV 1,000 MG/100 ML INFUS..BTL IVPB SCH ×3 (00:26→15:58)
[2017-04-14] MEDS: Ipratropium/Albuterol Neb 3 ML IH SCH ×4 (03:41→21:48)
[2017-04-14] MEDS: *HR* Heparin 5,000 UNIT/ML VIAL SQ SCH ×2 (05:38→17:09)
[2017-04-14 06:05] LABS: BUN/Creatinine Ratio 32 (6-26); Blood Urea Nitrogen 23 mg/dL (8-26); Calcium 9.1 mg/dL (8.6-10.8); Carbon Dioxide 25 mEq/L (19-29); Chloride 105 mEq/L (98-109); Glucose 91 mg/dL (70-99); Osmolality,Calculated 291 (280-300); Phosphorous 3.2 mg/dL (2.3-4.7); Potassium 4.3 mEq/L (3.5-4.5); Sodium 139 mEq/L (136-145); eGFR For African Americans > 60 (> 60); eGFR For Non-African Americans > 60 (> 60)
[2017-04-14] MEDS: Pantoprazole 40 MG VIAL IVP SCH ×2 (06:42→15:58)
[2017-04-14] MEDS: 0.9 % Sodium Chloride 1,000 ML IVC SCH (08:45)
--- NOTE | 2017-04-14 09:55 | General Surgery Progress Note ---
Date of Encounter: 04/14/17 Time of Encounter: 09:53 - Assessment and Plan (1) Gastric outlet obstruction Current Visit: Yes Status: Acute POD #4 s/p Gastrojejunostomy with Enteroenterostomy Upper GI Study performed today demonstrated no evidence of obstruction or leakage - Advancing diet to full liquids NGT d/c yesterday per patient pulling out Midline incision open to air VSS, H&H stable NPO TPN with PICC KENNY drain (<5 cc) Bowel sounds present on exam today. Two bowel movements noted this morning. Pain control: Well controlled at this time - IV Tylenol - Dilaudid CRIMINAL INTELLIGENCE ANALYST Encouraged ICS and ambulation with assistance. - Patient walked several times yesterday Continue supportive care and management Discharge planning - Likely home tomorrow after toleration of regular diet and continued bowel function (2) Leukocytosis Current Visit: Yes Status: Acute WBC 12.0>19.7>15.3> 24.4>17.4. Improving. Continue to trend Afebrile Qualifiers: Leukocytosis type: unspecified Qualified Code(s): D72.829 - Elevated white blood cell count, unspecified (3) Hypokalemia Current Visit: Yes Status: Acute Potassium 4.3 today. Replaced. Will repeat am labs. (4) History of drug abuse Current Visit: Yes Status: Chronic Holding home methadone (5) Tobacco abuse Current Visit: Yes Status: Acute Nicotine patch PRN Subjective Patient reports: no new complaints, feels better, pain is less, voiding w/o difficulty, flatus, bowel movement (x2), afebrile Narrative: Patient states that his NG tube "fell out while blowing his nose last night". Objective Vital Signs - Last 8 Hours Temp Pulse Resp BP Pulse Ox 04/14/17 07:14 98.7 F 107 16 130/71 95 04/14/17 05:23 97.8 F 85 16 114/69 94 Intake and Output 04/13/17 04/14/17 04/14/17 23:59 07:59 15:59 Intake Total 100 / 100 100 / 100 400 / 400 Output Total 325 / 325 435 / 435 Balance -225 / -225 -335 / -335 400 / 400 Intake: IV Fluids 100 / 100 100 / 100 400 / 400 0.9 % Sodium Chloride 1, 400 / 400 000 ML @ 40 mls/hr IVC . Q24H [facility] Rx#:[id number] Ofirmev 1,000 mg/100 ml 1 100 / 100 100 / 100 ,000 mg In 100 ml @ 400 mls/hr IVPB Q8HR [facility] Rx#: [id number] Oral 0 / 0 0 / 0 Output: Urine 325 / 325 425 / 425 Wound Drainage 0 / 0 10 / 10 Abdomen 0 / 0 10 / 10 Other: # Bowel Movements 0 Weight 58.1 kg Blood Glucose* 118 127 Patient Weight 04/14/17 23:59 Weight 58.1 kg - General physical appearance well developed, well nourished, no distress - Eyes normal ocular movement - ENT normal mucosa - Neck Neck exam: trachea midline - Respiratory normal expansion, normal respiratory effort, clear to auscultation - Cardiovascular Cardiovascular exam: Present: RRR - Abdomen Abdomen: Present: bowel sounds present, soft, tender (Incisional), wound ( Incision clean dry and intact. No erythema or drainage. No evidence of dehiscence. Jennifer present) - Neurologic CN 2-12 grossly intact - Psychiatric oriented to time, oriented to person, oriented to place, speech is normal, memory intact - Labs 04/14/17 10:11 04/14/17 05:32 BMP 04/14/17 Range/Units 05:32 Sodium 139 (136-145) mEq/L Potassium 4.3 (3.5-4.5) mEq/L Chloride 105 (98-109) mEq/L Carbon Dioxide 25 (19-29) mEq/L BUN 23 (8-26) mg/dL Creatinine 0.71 L (0.72-1.25) mg/dL Glucose 91 (70-99) mg/dL Calcium 9.1 (8.6-10.8) mg/dL Vital Signs Temp Pulse Resp BP Pulse Ox 04/14/17 07:14 98.7 F 107 16 130/71 95 04/14/17 05:23 97.8 F 85 16 114/69 94 04/14/17 00:05 99.2 F 109 16 130/75 93 04/13/17 20:34 99.6 F 98 16 118/70 90 04/13/17 17:32 99.0 F 103 16 130/78 92 04/13/17 15:29 100.8 F H 106 17 135/72 92 04/13/17 10:26 99.6 F 97 17 150/82 93 Intake and Output 04/13/17 04/14/17 04/14/17 23:59 07:59 15:59 Intake Total 100 / 100 100 / 100 400 / 400 Output Total 325 / 325 435 / 435 Balance -225 / -225 -335 / -335 400 / 400 Intake: IV Fluids 100 / 100 100 / 100 400 / 400 0.9 % Sodium Chloride 1, 400 / 400 000 ML @ 40 mls/hr IVC . Q24H [facility] Rx#:[id number] Ofirmev 1,000 mg/100 ml 1 100 / 100 100 / 100 ,000 mg In 100 ml @ 400 mls/hr IVPB Q8HR [facility] Rx#: [id number] Oral 0 / 0 0 / 0 Output: Urine 325 / 325 425 / 425 Wound Drainage 0 / 0 10 / 10 Abdomen 0 / 0 10 / 10 Other: # Bowel Movements 0 Weight 58.1 kg Blood Glucose* 118 127 Patient Weight 04/14/17 23:59 Weight 58.1 kg - VTE Documentation of Mechanical Device: Intermittent pneumatic compression device Consult Discharge Plan - Plan Referrals: Marla Mendoza DO [Primary Care Provider] -
[2017-04-14 10:23] LABS: Basophils # 0.1 K/mcL (0.0-0.2); Basophils % 0.3 %; Eosinophils # 0.1 K/mcL (0.0-0.6); Eosinophils % 0.7 %; Hematocrit 38.5 % (37.5-50.1); Immature Granulocytes % 0.5 % (0-4); Immature Platelets 4.4 % (1.1-6.1); Lymphocytes # 0.8 K/mcL (0.6-4.6); Lymphocytes % 4.6 %; Mean Corpuscular HGB Conc 32.7 g/dL (31.6-35.5); Mean Corpuscular Hemoglobin 28.3 pg (28.0-33.3); Mean Corpuscular Volume 86.3 fL (83.0-100.0); Monocytes # 1.2 K/mcL (0.0-1.3); Monocytes % 6.6 %; Neutrophils # 15.4 K/mcL (1.6-8.9); Platelet Count 234 K/mcL (140-400); Red Blood Count 4.46 M/mcL (4.19-5.50); Red Cell Distribution Width 12.9 % (11.5-14.5); Segmented Neutrophils % 87.3 %
[2017-04-14 10:30] LABS: Hemoglobin 12.6 g/dL (12.9-16.9)
[2017-04-14] MEDS: Ondansetron 4 MG/2 ML VIAL IVP PRN ×2 (11:16→17:10)
[2017-04-14] MEDS ORDERED: Clinimix E 5%-15% SOLUTION 2,000 ML with MVI, adult with vitamin K 10 ML IVC SCH (17:00)
[2017-04-14] MEDS: *HR* HYDROmorphone 20 MG/20 ML PCA IVC PRN (21:00)
[2017-04-14] MEDS: *HR* LORazepam 2 MG/ML VIAL IVP PRN (21:08)
[2017-04-15] MEDS: Acetaminophen IV 1,000 MG/100 ML INFUS..BTL IVPB SCH (00:14)
[2017-04-15] MEDS: *HR* Metoprolol 5 MG/5 ML VIAL IVP SCH ×4 (00:14→17:30)
[2017-04-15] MEDS: Ipratropium/Albuterol Neb 3 ML IH SCH ×4 (03:52→20:58)
[2017-04-15 04:49] LABS: BUN/Creatinine Ratio 31 (6-26); Blood Urea Nitrogen 22 mg/dL (8-26); Calcium 9.1 mg/dL (8.6-10.8); Carbon Dioxide 30 mEq/L (19-29); Chloride 103 mEq/L (98-109); Glucose 91 mg/dL (70-99); Magnesium 1.9 mg/dL (1.6-2.6); Osmolality,Calculated 287 (280-300); Phosphorous 3.7 mg/dL (2.3-4.7); Potassium 4.2 mEq/L (3.5-4.5); Sodium 137 mEq/L (136-145); eGFR For African Americans > 60 (> 60); eGFR For Non-African Americans > 60 (> 60)
[2017-04-15] MEDS: *HR* Heparin 5,000 UNIT/ML VIAL SQ SCH ×2 (05:52→17:28)
[2017-04-15] MEDS: Clinimix E 5%-15% SOLUTION 2,000 ML with MVI, adult with vitamin K 10 ML IVC SCH (07:32)
[2017-04-15] MEDS: Pantoprazole 40 MG VIAL IVP SCH ×2 (08:08→16:07)
[2017-04-15] MEDS: 0.9 % Sodium Chloride 1,000 ML IVC SCH (08:13)
[2017-04-15] MEDS ORDERED: *HR* Promethazine 25 MG/ML VIAL IVP PRN (11:03)
--- NOTE | 2017-04-15 11:07 | General Surgery Progress Note ---
Date of Encounter: 04/15/17 Time of Encounter: 11:04 - Assessment and Plan (1) Gastric outlet obstruction Current Visit: Yes Status: Acute POD #5 s/p Gastrojejunostomy with Enteroenterostomy Upper GI Study performed on 04/14/17 demonstrated no evidence of obstruction or leakage - Full liquid diet - Patient is not tolerating his diet well and will not advance today. Midline incision open to air TPN with PICC - will wean off tomorrow per dietitian KENNY drain (<5 cc) Pain control: Well controlled at this time - IV Tylenol - Dilaudid ROOM SERVICE SERVER Encouraged ICS and ambulation with assistance. - Patient walked several times yesterday Continue supportive care and management Discharge planning - Likely home tomorrow after toleration of diet and continued bowel function. Dr. Wiley, pain management [facility] [place], is working tomorrow and will call to discuss his home medication of methadone. Patient is currently out of his home methadone. (2) Leukocytosis Current Visit: Yes Status: Acute WBC 12.0>19.7>15.3> 24.4>17.4. Improving. Continue to trend Afebrile Qualifiers: Leukocytosis type: unspecified Qualified Code(s): D72.829 - Elevated white blood cell count, unspecified (3) History of drug abuse Current Visit: Yes Status: Chronic Holding home methadone. Patient is following Dr. Wiley in [place] - phone number [phone] Call the office today and Dr. Wiley is not working but is in tomorrow. Follow up in the morning and discuss recommendations for his home medications. (4) Tobacco abuse Current Visit: Yes Status: Acute Nicotine patch PRN Subjective Patient reports: voiding w/o difficulty, flatus, bowel movement, afebrile Narrative: Patient is resting comfortably in bed. He reports that he is not tolerating his full liquid diet. He has multiple bouts of nausea after attempting to eat some pudding and oatmeal. Objective Vital Signs - Last 8 Hours Temp Pulse Resp BP Pulse Ox 04/15/17 10:50 99.1 F 89 17 108/64 95 04/15/17 06:48 98.9 F 84 16 109/56 97 04/15/17 04:27 98.5 F 88 16 104/67 96 Intake and Output 04/14/17 04/15/1704/15/17 23:59 07:59 15:59 Intake Total 2524 / 2524 334 / 334 1360 / 1360 Output Total 400 / 400 0 / 0 100 / 100 Balance 2124 / 2124 334 / 334 1260 / 1260 Intake: IV Fluids 2404 / 2404 214 / 214 1000 / 1000 0.9 % Sodium Chloride 1, 304 / 304 114 / 114 1000 / 1000 000 ML @ 40 mls/hr IVC . Q24H [facility] Rx#:[id number] Clinimix E 5%-15% 1999 / 1999 SOLUTION 2,000 ML @ 83.3 mls/hr IVC .Q24H [facility] with M.v.i. Adult 10 ml Rx#: [id number] Ofirmev 1,000 mg/100 ml 1 100 / 100 100 / 100 ,000 mg In 100 ml @ 400 mls/hr IVPB Q8HR [facility] Rx#: [id number] Oral 120 / 120 120 / 120 360 / 360 Output: Urine 400 / 400 0 / 0 100 / 100 Wound Drainage 0 / 0 0 / 0 0 / 0 Abdomen 0 / 0 0 / 0 0 / 0 Other: Meal Full Percent of Meal Consumed 5% Weight 58.3 kg Blood Glucose* 125 104 111 Patient Weight 04/15/17 23:59 Weight 58.3 kg - General physical appearance well developed, well nourished, no distress - Eyes normal ocular movement - ENT normal mucosa - Neck Neck exam: trachea midline - Respiratory normal expansion, normal respiratory effort, clear to auscultation - Cardiovascular Cardiovascular exam: Present: RRR - Abdomen Abdomen: Present: bowel sounds present, soft, non tender, wound (Midline incision is clean dry and intact. Jennifer present. No erythema or drainage. KENNY drain intact left lower quadrant.) - Integumentary other (Warm and dry) - Neurologic CN 2-12 grossly intact - Psychiatric oriented to time, oriented to person, oriented to place, speech is normal, memory intact - Labs 04/14/17 10:11 04/15/17 04:04 BMP 04/15/17 Range/Units 04:04 Sodium 137 (136-145) mEq/L Potassium 4.2 (3.5-4.5) mEq/L Chloride 103 (98-109) mEq/L Carbon Dioxide 30 H (19-29) mEq/L BUN 22 (8-26) mg/dL Creatinine 0.72 (0.72-1.25) mg/dL Glucose 91 (70-99) mg/dL Calcium 9.1 (8.6-10.8) mg/dL Vital Signs Temp Pulse Resp BP Pulse Ox 04/15/17 10:50 99.1 F 89 17 108/64 95 04/15/17 06:48 98.9 F 84 16 109/56 97 04/15/17 04:27 98.5 F 88 16 104/67 96 04/14/17 23:58 98.7 F 102 16 116/69 94 04/14/17 21:48 18 94 04/14/17 19:10 98.4 F 90 18 111/52 96 04/14/17 15:15 16 94 04/14/17 14:42 98.4 F 90 18 116/73 94 Intake and Output 04/14/17 04/15/17 04/15/17 23:59 07:59 15:59 Intake Total 2524 / 2524 334 / 334 1360 / 1360 Output Total 400 / 400 0 / 0 100 / 100 Balance 2124 / 2124 334 / 334 1260 / 1260 Intake: IV Fluids 2404 / 2404 214 / 214 1000 / 1000 0.9 % Sodium Chloride 1, 304 / 304 114 / 114 1000 / 1000 000 ML @ 40 mls/hr IVC . Q24H [facility] Rx#:[id number] Clinimix E 5%-15% 1999 / 1999 SOLUTION 2,000 ML @ 83.3 mls/hr IVC .Q24H [facility] with M.v.i. Adult 10 ml Rx#: [id number] Ofirmev 1,000 mg/100 ml 1 100 / 100 100 / 100 ,000 mg In 100 ml @ 400 mls/hr IVPB Q8HR [facility] Rx#: [id number] Oral 120 / 120 120 / 120 360 / 360 Output: Urine 400 / 400 0 / 0 100 / 100 Wound Drainage 0 / 0 0 / 0 0 / 0 Abdomen 0 / 0 0 / 0 0 / 0 Other: Meal Full Percent of Meal Consumed 5% Weight 58.3 kg Blood Glucose* 125 104 111 Patient Weight 04/15/17 23:59 Weight 58.3 kg - VTE Documentation of Mechanical Device: Intermittent pneumatic compression device Consult Discharge Plan - Plan Referrals: Marla Mendoza DO [Primary Care Provider] -
[2017-04-15] MEDS ORDERED: Clinimix E 5%-15% SOLUTION 2,000 ML with MVI, adult with vitamin K 10 ML IVC SCH (17:00)
[2017-04-15] MEDS: *HR* LORazepam 2 MG/ML VIAL IVP PRN (22:03)
[2017-04-15] MEDS: *HR* HYDROmorphone 20 MG/20 ML PCA IVC PRN (22:16)
[2017-04-16] MEDS: *HR* Metoprolol 5 MG/5 ML VIAL IVP SCH ×3 (00:28→11:29)
[2017-04-16] MEDS: Ipratropium/Albuterol Neb 3 ML IH SCH ×2 (04:34→11:03)
[2017-04-16 05:18] LABS: BUN/Creatinine Ratio 24 (6-26); Blood Urea Nitrogen 18 mg/dL (8-26); Calcium 9.3 mg/dL (8.6-10.8); Carbon Dioxide 30 mEq/L (19-29); Chloride 101 mEq/L (98-109); Glucose 97 mg/dL (70-99); Magnesium 1.8 mg/dL (1.6-2.6); Osmolality,Calculated 284 (280-300); Phosphorous 3.9 mg/dL (2.3-4.7); Potassium 4.4 mEq/L (3.5-4.5); Sodium 136 mEq/L (136-145); Triglycerides 265 mg/dL (< 150); eGFR For African Americans > 60 (> 60); eGFR For Non-African Americans > 60 (> 60)
[2017-04-16] MEDS: *HR* Heparin 5,000 UNIT/ML VIAL SQ SCH (06:03)
[2017-04-16] MEDS: 0.9 % Sodium Chloride 1,000 ML IVC SCH (08:09)
[2017-04-16] MEDS: Pantoprazole 40 MG VIAL IVP SCH (08:10)
[2017-04-16 10:55] VITALS: BP 110/66
[2017-04-16] MEDS ORDERED: *HR* OxyCODONE/APAP 10/325 TABLET PO PRN (12:27)
--- NOTE | 2017-04-16 13:36 | Discharge Summary ---
Date of Encounter: 04/16/17 Time of Encounter: 01:00 - Discharge Diagnosis (1) Gastric outlet obstruction Priority: Primary Status: Acute (2) Leukocytosis Priority: Secondary Status: Resolved Qualifiers: Leukocytosis type: unspecified Qualified Code(s): D72.829 - Elevated white blood cell count, unspecified (3) Tobacco abuse Priority: Secondary Status: Chronic (4) History of drug abuse Priority: Secondary Status: Chronic - Discharge Medications Prescriptions: OxyCODONE/APAP 10/325 [Percocet 10/325 MG] 1 each PO Q4HR PRN #12 tab PRN Reason: Pain Ondansetron [Zofran ODT] 8 mg SL Q6HR PRN #30 tab.rapdis PRN Reason: Nausea Docusate [Colace] 100 mg PO BID #30 capsule Home Medications: Atorvastatin [Lipitor] 40 mg PO HS 04/10/17 [History] BuPROPion SR (12 HR) [Wellbutrin SR] 150 mg PO BID 04/10/17 [History] Lactose-Reduced Food [Ensure Liquid] 1 bottle PO TID 04/10/17 [History] Pantoprazole Sodium [Protonix] 40 mg PO DAILY 04/10/17 [History] Docusate [Colace] 100 mg PO BID #30 capsule 04/16/17 [Rx] Ondansetron [Zofran ODT] 8 mg SL Q6HR PRN #30 tab.rapdis 04/16/17 [Rx] OxyCODONE/APAP 10/325 [Percocet 10/325 MG] 1 each PO Q4HR PRN #12 tab 04/16/17 [ Rx] Allergies/Adverse Reactions: Allergies No Known Allergies Allergy (Verified 08/23/16 18:26) General Surgery Exam Initial Vital Signs Temp Pulse Resp BP Pulse Ox 98.4 F 82 16 133/86 96 04/09/17 13:47 04/09/17 13:47 04/09/17 13:47 04/09/17 13:47 04/09/17 13:47 - General physical appearance well developed, no distress, moderate pain - Eyes normal ocular movement - ENT normal mucosa - Neck trachea midline - Respiratory normal expansion, normal respiratory effort, clear to auscultation - Cardiovascular Cardiovascular exam: Present: RRR - Abdomen Abdomen general surgery: Present: bowel sounds present, soft, tender (Expected post-operative tenderness) - Incision Incision: Present: clean and dry, intact - Integumentary Integumentary general surgery: Present: warm and dry, no abnormal pigmentation - Neurologic Present: CN 2-12 grossly intact - Musculoskeletal Present: normal gait, normal posture - Psychiatric Psychiatric general surgery: Present: A&Ox3, appropriate Date of admission: 04/09/17 15:20 Primary care physician: Marla Mendoza DO Discharging clinician: Andrea Lew) - Patient Status Disposition: Home, Self-Care Condition: Good Overall status at discharge: patient is progressing back to baseline - Discharge Instructions Follow Up With: Marla Mendoza DO [Primary Care Provider] - Whit Alvarez MD [Partnered Physician] - (04/25/2017 11:05 am.) Additional Instructions: -No lifting, pulling, pushing, greater than 10 pounds for 6 weeks. -Okay to climb stairs. -May resume driving when you have been off narcotics for 24 hours and you are safe to react in the car. -You may shower beginning today. Wash the incisions daily with soap and water and pat dry. -No swimming, tough bath, or soaking for 2 weeks. -Return to the office for follow-up as directed. -Report any increase in discomfort or any new fevers greater than 101.5 degrees and signs of infection such as redness, swelling, or drainage from the incisions. -You may take stool softener if you're constipated while on narcotics. You may discontinue stool softener if you experience loose stool. -Continue a full liquid diet including putting consistency, oatmeal, smoothies, or milkshakes until seen by Dr. Alvarez. You may continue Ensure for meal supplements. -Refrain from smoking as discussed. - Diet and Activity Activity: other (See above) Diet: other (Full liquids (oatmeal, pudding, smoothies, milk shakes) until) - Hospital Course Hospital course: Mr. Ferrara is a 56 year old male who is POD #6 of a gastrojejunostomy with Henderson enteroenterostomy. He had been evaluated, by Dr. Alvarez as an outpatient, for unintentional weight loss and early satiety for at least the previous 6 months with a total weight loss of greater than 25 pounds. He reported a history of acid reflux and stated that his symptoms had become more intense over the last few months. He reported dark red blood per rectum at times. He had an EGD completed which revealed erythema of the gastric antrum, irregular Z line, and severe duodenal stenosis. He was sent for an upper GI evaluation which further demonstrated severe duodenal stenosis causing gastric outlet obstruction. He was taken to the OR and underwnet a gastrojejunostomy with Henderson enteroenterostomy on 04/10/2017, He completed an upper G.I. study on 04/14/2017 that demonstrated no evidence of obstruction or leakage. His discomfort had been controlled with a dialogic DIESEL MAINTENANCE ELECTRICIAN, IV Tylenol, and intermittent lorazepam for anxiety. He has supplemental nutrition with TPN. His KENNY is draining and minimal amount of [employer] singleness fluid and is d/'d on 04/16/2017. The remainder of his hospital course was unremarkable. His case was complicated by his history of drug abuse and concurrent treatment with methadone by Dr. Wiley ([facility]) (P:[phone]). On 04/16/2017, we did contact Dr. Wiley's office ([facility]) and informed them of pt's hospital course. They were agreeable to pt being discharged with Percocet for pain control and pt to follow-up in their office tomorrow for resuming methadone treatments. The office request a MAR report accompany the patient for follow- up. This was reviewed with the patient who is agreeable. Time spent discussing smoking cessation with patient: 3 to 10 minutes - Time Spent with Patient Total time spent providing and/or coordinating discharge services: Greater than 30 minutes Labs on day of discharge: Labs from last 24 hours 04/16/17 04/16/17 04/16/17 08:27 04:26 03:27 Sodium 136 Potassium 4.4 Chloride 101 Carbon Dioxide 30 H BUN 18 Creatinine 0.74 Est GFR ( Amer) > 60 Est GFR (Non-Af Amer) > 60 BUN/Creatinine Ratio 24 Glucose 97 POC Glucose 107 H 104 H Calculated Osmolality 284 Calcium 9.3 Phosphorus 3.9 Magnesium 1.8 Triglycerides 265 H 04/15/17 04/15/17 04/15/17 23:59 19:10 15:31 Sodium Potassium Chloride Carbon Dioxide BUN Creatinine Est GFR ( Amer) Est GFR (Non-Af Amer) BUN/Creatinine Ratio Glucose POC Glucose 123 H 119 H 144 H Calculated Osmolality Calcium Phosphorus Magnesium Triglycerides 04/15/17 08:29 Sodium Potassium Chloride Carbon Dioxide BUN Creatinine Est GFR ( Amer) Est GFR (Non-Af Amer) BUN/Creatinine Ratio Glucose POC Glucose 111 H Calculated Osmolality Calcium Phosphorus Magnesium Triglycerides - Impressions ITS Impressions Upper GI Series 04/14/17 11:10 IMPRESSION: No evidence of obstruction or leak. D/ / Siva Leary MD / Siva Leary MD Interpreting Provider: Siva Leary MD Chest/Abdomen X-ray 04/15/17 15:15 IMPRESSION: No acute abnormality. No extraluminal contrast or evidence of obstruction. Probable basilar atelectasis at both lung bases D/ / Julio Cesar Washington / Julio Cesar Washington Interpreting Provider: Julio Cesar Washington
== END 2017-04-16 15:48 | disposition home or self-care (01) | DRG 220 ==
LOC: 3BNU → 3ANU 04-10 15:26
PROVIDERS: ADMIT Surgery; ATTEND Surgery

== ENCOUNTER 2020-07-09 19:20 | Inpatient (IN) ==
[2020-07-09] MEDS ORDERED: Morphine Sulfate 2 MG/ML SYRINGE IVP ONE (19:23)
[2020-07-09] MEDS ORDERED: Ondansetron 4 MG/2 ML VIAL IVP ONE ×2 (19:23→20:57)
[2020-07-09] MEDS ORDERED: 0.9 % Sodium Chloride 1,000 ML IVC ONE (19:41)
[2020-07-09 19:49] LABS: Basophils % 0.2 %; Eosinophils % 0.1 %; Hematocrit 46.9 % (37.5-50.1); Hemoglobin 15.5 g/dL (12.9-16.9); Immature Granulocytes % 0.2 % (0-4); Lymphocytes # 1.1 K/mcL (0.6-4.6); Lymphocytes % 8.6 %; Mean Corpuscular Hemoglobin 28.5 pg (28.0-33.3); Mean Corpuscular Volume 86.2 fL (83.0-100.0); Mean Platelet Volume 9.3 fL (9.4-12.4); Monocytes # 0.7 K/mcL (0.0-1.3); Monocytes % 5.6 %; Neutrophils # 10.9 K/mcL (1.6-8.9); Platelet Count 271 K/mcL (140-400); Red Blood Count 5.44 M/mcL (4.19-5.50); Red Cell Distribution Width 13.2 % (11.5-14.5); Segmented Neutrophils % 85.3 %; White Blood Count 12.8 K/mcL (4.3-11.1)
[2020-07-09 20:13] LABS: Alanine Aminotransferase 14 Units/L (7-52); Albumin 4.1 g/dL (3.5-5.7); Albumin/Globulin Ratio 1.3 (1.1-2.2); Alkaline Phosphatase 102 Units/L (34-104); Aspartate Amino Transferase 19 Units/L (13-39); BUN/Creatinine Ratio 14 (6-26); Bilirubin,Direct 0.1 mg/dL (0.0-0.2); Bilirubin,Indirect 0.6 mg/dL (0.0-1.0); Bilirubin,Total 0.7 mg/dL (0.3-1.0); Blood Urea Nitrogen 14 mg/dL (6-20); Calcium 9.8 mg/dL (8.6-10.3); Carbon Dioxide 31 mEq/L (23-29); Chloride 96 mEq/L (98-107); Globulin 3.2 g/dL (2.4-3.5); Glucose 124 mg/dL (70-105); Lipase 6 Units/L (11-82); Magnesium 1.2 mg/dL (1.6-2.6); Osmolality,Calculated 286 (280-300); Phosphorous 4.1 mg/dL (2.7-4.5); Potassium 3.3 mEq/L (3.5-5.1); Sodium 137 mEq/L (136-145); Total Protein 7.3 g/dL (6.4-8.9); eGFR For African Americans > 60 (> 60); eGFR For Non-African Americans > 60 (> 60)
[2020-07-09 20:20] LABS: Troponin I < 0.03 ng/mL (< 0.04)
[2020-07-09] MEDS ORDERED: *HR* HYDROmorphone (PF) 1 MG/ML SYRINGE IVP ONE (20:57)
[2020-07-09] MEDS ORDERED: Benzocaine/Menthol 56 GM AEROSOL SPRAY TP STA (22:09)
[2020-07-09] MEDS ORDERED: Tetracaine/Benzocaine/Butamben 1 SPRAY AEROSOL MM ONE (22:20)
[2020-07-09] MEDS ORDERED: *HR* Promethazine 25 MG/ML VIAL IVP PRN (22:44)
[2020-07-09] MEDS ORDERED: Naloxone 0.4 MG/ML INJ IVP PRN (22:44)
[2020-07-09] MEDS ORDERED: Potassium Chloride 40 MEQ, Lidocaine 1% 2 ML in 0.9 % Sodium Chloride 500 ML IVPB ONE (23:02)
[2020-07-09] MEDS ORDERED: Magnesium Sulfate 1 GM/102 ML PIGGYBACK IVPB ONE (23:02)
[2020-07-10] MEDS: *HR* HYDROmorphone (PF) 1 MG/ML SYRINGE IVP PRN ×4 (00:58→20:45)
[2020-07-10] MEDS: 0.9 % Sodium Chloride 1,000 ML IVC SCH ×2 (00:59→11:27)
[2020-07-10] MEDS ORDERED: 0.9 % Sodium Chloride 1,000 ML IV ONE (01:36)
[2020-07-10] MEDS ORDERED: Pantoprazole 40 MG VIAL IVP ONE (01:45)
[2020-07-10] MEDS: Pantoprazole 40 MG VIAL IVP SCH ×2 (04:54→17:29)
[2020-07-10 06:59] LABS: Bacteria,Urine Few per hpf (None-Few); Bilirubin,Urine Negative (Negative); Blood,Urine Trace (Negative); Clarity,Urine Clear (Clear); Color,Urine Yellow (Yellow); Glucose,Urine (UA) Normal (Normal); Ketones,Urine 40 mg/dL (Negative); Leukocyte Esterase,Urine Negative (Negative); Mucus,Urine Few per lpf (None-Few); Nitrite,Urine Negative (Negative); Protein,Urine 30 mg/dL (Neg-Trace); RBC,Urine 15-30 per hpf (0-3); Specific Gravity,Urine > 1.030 (1.010-1.025); Urobilinogen,Urine Normal (Normal); WBC,Urine 0-3 per hpf (0-3)
[2020-07-10 08:36] LABS: Basophils % 0.4 %; Eosinophils % 0.3 %; Hematocrit 44.1 % (37.5-50.1); Hemoglobin 14.3 g/dL (12.9-16.9); Immature Granulocytes % 0.1 % (0-4); Lymphocytes # 1.3 K/mcL (0.6-4.6); Lymphocytes % 17.9 %; Mean Corpuscular HGB Conc 32.4 g/dL (31.6-35.5); Mean Corpuscular Hemoglobin 28.9 pg (28.0-33.3); Mean Corpuscular Volume 89.1 fL (83.0-100.0); Mean Platelet Volume 9.4 fL (9.4-12.4); Monocytes # 0.8 K/mcL (0.0-1.3); Monocytes % 10.6 %; Neutrophils # 5.1 K/mcL (1.6-8.9); Platelet Count 235 K/mcL (140-400); Red Blood Count 4.95 M/mcL (4.19-5.50); Red Cell Distribution Width 13.3 % (11.5-14.5); Segmented Neutrophils % 70.7 %; White Blood Count 7.3 K/mcL (4.3-11.1)
[2020-07-10 08:42] LABS: INR 1.1; Prothrombin Time 12.4 Seconds (9.4-12.1)
[2020-07-10 09:00] LABS: BUN/Creatinine Ratio 14 (6-26); Blood Urea Nitrogen 14 mg/dL (6-20); Calcium 8.4 mg/dL (8.6-10.3); Carbon Dioxide 31 mEq/L (23-29); Chloride 103 mEq/L (98-107); Glucose 98 mg/dL (70-105); Magnesium 1.6 mg/dL (1.6-2.6); Osmolality,Calculated 290 (280-300); Phosphorous 2.6 mg/dL (2.7-4.5); Potassium 3.9 mEq/L (3.5-5.1); Sodium 140 mEq/L (136-145); eGFR For African Americans > 60 (> 60); eGFR For Non-African Americans > 60 (> 60)
[2020-07-11] MEDS: *HR* HYDROmorphone (PF) 1 MG/ML SYRINGE IVP PRN (01:56)
[2020-07-11] MEDS ORDERED: D5% in Water 1,000 ML IVC PRN (06:02)
[2020-07-11] MEDS ORDERED: *HR* Dextrose 50 % in Water (Vial) 50 ML VIAL IVP PRN (06:02)
[2020-07-11] MEDS ORDERED: Dextrose Gel 15 GM/37.5 ML TUBE PO PRN ×2 (06:02)
[2020-07-11] MEDS: Pantoprazole 40 MG VIAL IVP SCH ×2 (06:30→17:53)
[2020-07-12 03:31] LABS: Basophils % 0.4 %; Eosinophils # 0.2 K/mcL (0.0-0.6); Eosinophils % 2.8 %; Hematocrit 40.3 % (37.5-50.1); Hemoglobin 13.2 g/dL (12.9-16.9); Immature Granulocytes % 0.1 % (0-4); Lymphocytes # 2.2 K/mcL (0.6-4.6); Mean Corpuscular HGB Conc 32.8 g/dL (31.6-35.5); Mean Corpuscular Hemoglobin 28.9 pg (28.0-33.3); Mean Corpuscular Volume 88.4 fL (83.0-100.0); Mean Platelet Volume 9.6 fL (9.4-12.4); Monocytes # 0.9 K/mcL (0.0-1.3); Monocytes % 13.5 %; Neutrophils # 3.5 K/mcL (1.6-8.9); Platelet Count 217 K/mcL (140-400); Red Blood Count 4.56 M/mcL (4.19-5.50); Red Cell Distribution Width 12.9 % (11.5-14.5); Segmented Neutrophils % 51.2 %; White Blood Count 6.9 K/mcL (4.3-11.1)
[2020-07-12 03:46] LABS: BUN/Creatinine Ratio 13 (6-26); Blood Urea Nitrogen 11 mg/dL (6-20); Calcium 8.3 mg/dL (8.6-10.3); Carbon Dioxide 27 mEq/L (23-29); Chloride 102 mEq/L (98-107); Glucose 90 mg/dL (70-105); Magnesium 1.6 mg/dL (1.6-2.6); Osmolality,Calculated 283 (280-300); Phosphorous 1.8 mg/dL (2.7-4.5); Potassium 2.9 mEq/L (3.5-5.1); Sodium 137 mEq/L (136-145); eGFR For African Americans > 60 (> 60); eGFR For Non-African Americans > 60 (> 60)
[2020-07-12] MEDS: Pantoprazole 40 MG VIAL IVP SCH (05:19)
[2020-07-12] MEDS ORDERED: Potassium Phosphate 44 MEQ in 0.9 % Sodium Chloride 250 ML IVPB ONE (07:58)
[2020-07-12] MEDS: Potassium Chloride Elixir 20 MEQ/15 ML UDC PO SCH ×2 (08:28→11:24)
[2020-07-12] MEDS ORDERED: Methadone Oral Concentrate 50 MG/5 ML UDC PO SCH (10:15)
[2020-07-12 10:45] VITALS: BP 141/80
[2020-07-12] MEDS ORDERED: FLU Vac QV 20-21 (6Month+)/PF 0.5 ML SYRINGE IM ONE (14:56)
== END 2020-07-12 15:21 | disposition home or self-care (01) | DRG 247 ==
LOC: EMEROOARM 19:20 → 3ANU 19:20
PROVIDERS: ADMIT Student in an Organized Health Care Education/Training Program; ATTEND Student in an Organized Health Care Education/Training Program